=== PATIENT | female | born 1960 | race Caucasian/White ===

== ENCOUNTER 2023-11-20 05:40 | Emergency (ER) | payer OTHER, SELFPAY ==
[2023-11-20 05:53] VITALS: BP 151/90; PULSE 102; RESP 16; TEMP 36.7; O2SAT 98; BMI 27.5
[2023-11-20] MEDS: ONDANSETRON ODT 4 MG TAB 8 MG PO (06:38)
--- OUTSIDE RECORDS SUMMARY | 2023-11-20 06:51 | XMS_ITS | Clinical Summary ---
[facility] Address [address], [place] [address] Care Team Providers Care Classified Advertising Clerk Name Role Phone Jose Velásquez MD Primary Care Provider Source Comments You are receiving this document as you are listed as the primary care provider,follow-up provider, or the patient has been referred to you for consultation.This is in compliance with the Medicare andThe [facility] EHR Incentive Program,which states Providers who transition their patient to another setting of careor provider of care or refers their patient to another provider of care shouldprovide summary care record for each transition of care or referral. Blog Talk RadioGuadalupe County HospitalBusy [facility] Allergies No known active allergies Medications Medication Sig Dispensed Refills Start Date End Date Status fluticasone propionate (FLONASE) 50 MCG/ACT nasal solutionIndications :Chronic cough,Throat irritation SPRAY 2 SPRAYS INTO EACH NOSTRIL EVERY DAY 48 g 3 02/07/2020 Active estradiol (ESTRACE) 0.1 MG/GM vaginal creamIndications:Va ginal irritation Insert 1 g vaginally two times a week. 42.5 g 1 12/31/2021 Active Additional Information Patient not taking.Reported on 07/20/2023 cyclobenzaprine (FLEXERIL) 10 MG tabletIndications:F ibromyalgia Take 1 Tablet (10 mg) by mouth at bedtime as needed. for muscle spasms 20 Tablet 12/28/2021 Active SUMAtriptan (IMITREX) 50 MG tabletIndications:M igraine without status migrainosus, not intractable, unspecified migraine type TAKE 1 TABLET BY MOUTH DAILY NEEDED. MAY REPEAT AFTER 2 HOURS IF NEEDED. MAX 4 TAB/24 HOURS. MAX 9 DAYS/MONTH 9 Tablet 8 04/12/2022 Active buPROPion (WELLBUTRIN XL) 150 MG 24 hour release tabletIndications:M ild episode of recurrent major depressive disorder (HRC) Take 1 Tablet (150 mg) by mouth daily. 90 Tablet 3 04/10/2023 Active citalopram (CELEXA) 40 MG tabletIndications:M ild episode of recurrent major depressive disorder (HRC) Take 1 Tablet (40 mg) by mouth daily. 90 Tablet 3 04/10/2023 Active omeprazole (PRILOSEC) 20 MG capsuleIndications: Gastroesophageal reflux disease with esophagitis without hemorrhage Take 1 Capsule (20 mg) by mouth daily. Take 1 hour before a meal. 90 Capsule 3 04/10/2023 Active fluconazole (DIFLUCAN) 150 MG tabletIndications:V aginal itching Take 1 tablet now, repeat the dose every 72 hours x 3 doses. 3 Tablet 07/11/2023 Active Additional Information Patient not taking.Reported on 07/20/2023 benzonatate (TESSALON) 200 MG capsule Take 1 Capsule (200 mg) by mouth three times a day as needed for Cough. 30 Capsule 07/20/2023 Active HYDROcodone-acetami nophen (NORCO) 5-325 MG tablet Take 1-2 Tablets by mouth every 6 hours as needed for Pain. 10 Tablet 10/16/2023 Active ibuprofen (MOTRIN) 800 MG tablet Take 1 Tablet (800 mg) by mouth every 8 hours as needed for Pain. 30 Tablet 10/16/2023 Active Active Problems Problem Noted Date Diagnosed Date Hallux valgus, right 09/03/2023 Tailor's bunion of right foot 09/03/2023 Tailor's bunion of left foot 04/20/2022 Overview (04/20/2022): Added automatically from request for surgery [id number] Osteopenia 12/18/2020 Malignant neoplasm of upper lobe of right lung 0 09/25/2020 Overview (09/25/2020): Added automatically from request for surgery [id number] History of basal cell carcinoma 09/25/2020 Overview (09/25/2020): BCC, left medial canthus, s/p biopsy 11/14/2014. 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 Due to not eating with illness. Acute Acute endometritis 06/21/2014 Overview (10/16/2016): Acute endometritis - post surgical Encounters Date Type Department Care Team Description 11/11/2023 2:15 PM CDT Ancillary Procedure [place] [address] Radiology Podiatry [address] [place] [address]. [place] [address] Goyo Bobby DPM Orthopedic aftercare 11/11/2023 2:00 PM CDT Office Visit [place] [address] Podiatric MedSurg [address] [place] [address]. [facility] [place] [address] Goyo Bobby DPM Hallux valgus, right (Primary Dx); Tailor's bunion of right foot 11/10/2023 8:00 AM CDT Ancillary Procedure [place] [address] [place] [address]. [place] [address] Goyo Bobby DPM Unknown cause of injury, subsequent encounter 11/03/2023 2:30 PM CDT Office Visit [place] P3800 Podiatric MedSurg [address] [facility]. [place] [address] Nurse, P3800 Pod Med Surg Orthopedic aftercare (Primary Dx) 10/20/2023 2:45 PM CDT Ancillary Procedure [facility] [address] Radiology [address] [facility]. [place] [address] Goyo Bobby DPYari Hallux valgus, right 10/20/2023 2:30 PM CDT Office Visit [place] P3800 Podiatric MedSurg [address] [place] [address]. [place] [address] Nurse, P3800 Pod Med Surg Hallux valgus, right (Primary Dx); Orthopedic aftercare 10/16/2023 8:25 AM CDT - 10/16/2023 10:00 AM CDT Surgery [facility] [address] Ambul Surgery [address] [place] [address]. [place] [address] Gooy Bobby, DPYari BUNIONECTOMY WITH OSTEOTOMY AND TAILOR'S BUNIONECTOMY WITH OSTEOTOMY AND K-WIRE FIXATION 10/16/2023 8:14 AM CDT Anesthesia Event [facility] [address] Ambul Surgery [address] [facility] [place] [address] Priti Veloz MD 10/16/2023 7:14 AM CDT - 10/16/2023 10:30 AM CDT Hospital Encounter [facility] [address] Ambul Surgery [address] [facility]. [place] [address] Goyo Bobby DPM Hallux valgus, right; Tailor's bunion of right foot Discharge Disposition: Home 10/13/2023 E-Visit [facility] [address] Ambul Surgery [address] [facility] [place] [address] Rosa Maria, Generic Provider 10/07/2023 8:30 AM CDT Pre-Op Visit [facility] [address] [facility] [place] [address] Jose Velásquez MD Preoperative examination (Primary Dx); Tailor's bunion of right foot 09/30/2023 Telephone [facility] P38 Podiatric MedSurg [address] [place] [place] [address] Goyo Bobby, DPYari Prior Authorization For Procedure 09/11/2023 Notes/Orders [facility] Podiatric MedSurg [address] [place] [address] Goyo Bobby, HUY 09/03/2023 8:45 AM CDT Office Visit [facility] Podiatric MedSurg [address] [place] [address] Goyo Bobby, DPYari Foot pain, right (Primary Dx); Hallux valgus, right; Tailor's bunion of right foot 09/03/2023 8:40 AM CDT Ancillary Procedure [facility] Radiology [address] [place] [address] Goyo Bobby, DPYari Foot pain, right 09/03/2023 Telephone [facility] Podiatric Med[facility]urg [address] [place] [address] Goyo Bobby, DPYari Surgery Scheduling from Last 3 Months Immunizations Name Administration Dates Next Due Flu Vac (3+ yrs) 12/22/2012,04/06/2010 Flu Vac Preserv Free (3+yrs) 02/09/2008, 01/20/2007,12/23/2005,2002 Flublok (RIV4) 12/17/2021 HepA-HepB ([place], 18+ yrs) 02/10/2019,07/17/19 19,06/18/2018 Influenza ([place] Only) (Flul aval Quad 0.5, 3+ yrs) 02/13/2018 Influenza (Flucelvax), Prese rv Free QIV 11/30/2019,12/23/2017 Influenza IIV4 (Quadrivalent ) 0.5mL (92891) 01/25/2023,12/01/2020,12/31/2018,2016,02/07/2016 Influenza, Unspecified Formulation 11/24/2013 PCV20 ([id number]) 12/28/2021 Pfizer Bivalent 12+ 11/19/2021 Pfizer COVID-19 12+ 01/25/2023 Pfizer Monovalent 12+ 07/12/2021 Pfizer Monovalent 12+ Purple Top 12/13/2020,05/26,05/24/2020 Positive Measles Titer 06/18/2018 Positive Mumps Titer 06/18/2018 TDAP (ADACEL) 01/09/2011 Td 11/09/2002 Tdap 06/18/2018 Typhoid (Typhim Vi, IM) 06/18/2018 Zoster (Zostavax) 05/16/2015 Zoster RZV (Shingrix) 12/01/2020,11/30/2019 Family History Medical History Relation Name Comments Colon Polyps Father Lexx Dementia Father Lexx 2012 Heart Disease Father Lexx Depression Mother Sowmya Cancer, Breast Maternal Aunt great aunts osteroporosis Maternal Grandmother Urolithiasis Other Cancer Sister 1 Radha Cancer, Breast Sister 1 Radha Osteoporosis Sister 2 Cancer, Colon Negative Family History Cancer, Ovary Negative Family History Relation Name Status Comments Father Lexx Mother Sowmya Maternal Aunt Maternal Grandmother Other Sister 1 Radha Sister 2 Social History Tobacco Use Types Packs/Day Years Used Date Smoking Tobacco: Former Cigarettes Smokeless Tobacco: Never Tobacco Cessation:Counseling Given: Not Answered Comments:College light Alcohol Use Standard Drinks/Week Comments Not Currently 5 (1 standard drink = 0.6 oz pur e alcohol) 5 and under per week Humiliation, Afraid, Rape, and Kick questionnair e Answer Date Recorded Fear of Current or Ex-Partner Not on file Within the last year, have y ou been humiliated or emotionally abused in other ways by your partner or ex-partner? No 10/16/2023 Within the last year, have y ou been kicked, hit, slapped, or otherwise physically hurt by your partner or ex-partner? No 10/16/2023 Within the last year, have y ou been raped or forced to have any kind of sexual activity by your partner or ex-partner? No 10/16/2023 PHQ-2 Answer Date Recorded PHQ-2 Score 0 10/07/2023 Sex and Gender Information Value Date Recorded Sex Assigned at Not on file Gender Identity Not on file Sexual Orientation Not on file Last Filed Vital Signs Vital Sign Reading Time Taken Comments Blood Pressure 123/77 10/16/2023 10:01 AM CDT Pulse 88 10/16/2023 10:12 AM CDT Temperature 36.7 ??C (98.1 ??F) 10/16/2023 9:21 AM CD T Respiratory Rate 16 10/16/2023 9:45 AM CDT Oxygen Saturation 93% 10/16/2023 10:12 AM CDT Inhaled Oxygen Concentration - - Weight 72.1 kg (159 lb) 10/07/2023 8:37 AM CDT Height 157.5 cm (5' 2) 10/07/2023 8:37 AM CDT Body Mass Index 29.08 10/07/2023 8:37 AM CDT Plan of Treatment Upcoming Encounters Date Type Department Care Team (Late st Contact Info) Description 11/25/2023 1:45 PM CDT Appointment [facility] P3800 Podiatric MedSurg [address] [facility]. [place], [place] [id number] Goyo Bobby, DPYari [address] [place], [place] [id number] Health Maintenance Due Date Last Done Comments Adult Preventive Visit 12/28/2022 , 12/13/2020, 05/16/2018 Cervical Cancer Screening 05/17/20232018, 05/16/2015, 11/23/2012, Additional history exists Dexa 06/02/2023 06/01/2021, 06/16/2018 COVID-19 Vaccine ( season) 2023 01/25/2023, 11/19/2021, 07/12/2021, Additional history exists Influenza (#1) 2023 01/25/2023, 11/25, 12/01/2020, Additional history exists Mammogram 01/11/2024 01/10/2023, 05/2021, 08/22/2020, Additional history exists Colonoscopy 11/20/2025 11/21/2015, 10/25, 11/07/2009 Diabetes Screening- (based on age and BMI) 07/22/2026 07/23/2023, 01/03/2022, 01/02/2021 DTaP/Tdap/Td (3 - Tdap) 06/18/2028 06/19/19 19, 01/09/2011, 11/09/2002 Cholesterol 07/22/2028 07/23/2023, 12/25, 01/02/2021, Additional history exists RSV (1 - 1-dose 75+ series) 10/28/2034 HepA Completed 02/10/2019, 06/25, 06/18/2018 HepB Completed 02/10/2019, 06/25, 06/18/2018 Zoster/Shingles Completed 12/01/2020, 07/2019, 05/16/2015 HIV Screening (Preventive Services) Completed 01/02/2021 Hep C Screening (Preventive Services) Completed 01/02/2021 Pneumococcal Completed 12/28/2021 Hib Aged Out No longer eligi ble based on patient's age to complete this topic IPV (Polio) Aged Out No longer eligi ble based on patient's age to complete this topic MCV4 Aged Out No longer eligi ble based on patient's age to complete this topic Medical Devices Implanted Type Area Regional Trainer Device Identifier Shelf Expiration Date Model / Serial / Lot Sut [place] Point Corkscrew 5.5mm W2# - [id number] Implanted:Qt y: 1 on 05/08/2020 by Emerson Vasquez MD at [facility] DEVICE Right: SHOULDER [employer] 10/24/2024 [id number] / 0 / [id number] K-Wire .062 - [id number] Implanted:Qt y: 1 on 06/20/2022 by Goyo Bobby DPM at [facility] DEVICE Left: FOOT [employer] 05/07/2026 [id number] / / [id number] Scr Dl 4.0x28 Lng-Thrd - [id number] Implanted:Qt y: 1 on 06/20/2022 by Goyo Bobby DPM at [facility] DEVICE Left: FOOT [employer] - Trauma 207.728 / / Description:NO EXP DATE K-Wire .045 X 6in - [id number] Implanted:Qt y: 1 on 06/20/2022 by Goyo Bobby, HUY at [facility] DEVICE Left: FOOT [employer] 01/31/2026 [id number] / / [id number] K-Wire Gde .045mm Smth - B/6 - [id number] Implanted:Qt y: 1 on 10/16/2023 by Goyo Bobby DPM at [facility] DEVICE Right: FOOT [employer] 08/18/2027 1600-645 / / [id number] K-Wire Gde .062mm Smth - B/6 - [id number] Implanted:Qt y: 1 on 10/16/2023 by Goyo Bobby DPM at [facility] DEVICE Right: FOOT [employer] 07/04/2027 1600-662 / / [id number] Procedures Procedure Name Priority Date/Time Associated Diagnosis Comments XR FOOT RT 3+ VIEWS Routine 11/11/2023 1 :50 PM CDT Orthopedic aftercare XR FOOT RT 3+ VIEWS Routine 10/20/2023 3 :16 PM CDT Hallux valgus, right FL C ARM MINI Routine 10/16/2023 8:59 AM CDT Unknown cause of injury, subsequent encounter BUNIONECTOMY WITH OSTEOTOMY 10/16/2023 8:02 AM CDT Hallux valgus, right Tailor's bunion of right foot XR FOOT RT 3+ VIEWS Routine 09/03/2023 8 :46 AM CDT Foot pain, right LIPID PANEL & DIRECT LDL (IF NEEDED) Routine 07/23/2023 9:01 AM CDT Lipid screening MM MAMMOGRAM SCREENING BILAT W 3D DES W CAD Routine 01/10/2023 8:07 AM PET CARE ATTENDANT DXA BONE DENSITY SPINE/HIP INC VERT FX ASSESS Routine 06/01/2021 2:58 PM CDT Osteopenia, unspecified location HIV 1/2 AG/AB 4TH GEN Routine 01/02/2021 8:17 AM PET CARE ATTENDANT Screening for HIV (human immunodeficiency virus) HEPATITIS C ANTIBODY, WITH REFLEX Routine 01/02/2021 8:17 AM PET CARE ATTENDANT Need for hepatitis C screening test ANATOMICAL PATH LIQUID BASED Routine 05/16/2018 8:46 AM CDT ENDOSCOPY, COLON, SCREENING/DIAGNOSTIC Routine 11/21/2015 7:46 AM CDT Screen for colon cancer from Last 3 Months or Most Recently Relevant to Health Maintenance Results * XR Foot Rt 3+ Views (11/11/2023 1:50 PM CDT) Only the most recent of3 resultswithin the time period is included. Anatomical Region Laterality Modality Lower Extremity, Foot Computed R adiography 11/11/2023 1:47 PM CDT Impressions 11/11/2023 2:22 PM CDT COMPARISON: ??Right foot 3 views, 10/20/2023. FINDINGS: ??3 views of the right foot. Stable postoperative changes from a bunionectomy. Unchanged postoperative changes from osteotomies of the distal first and fifth metatarsals. Fixation pins remain intact. Incomplete healing of the osteotomies. Joint space narrowing and osteophyte formation at the first MTP joint. Remainder of the joint spaces of the right foot are preserved. Enthesophyte formation at the calcaneal insertion site of the plantar fascia. Normal calcaneal pitch. Narrative Procedure Note Uche Paige MD - 11/11/2023 IMPRESSION COMPARISON: Right foot 3 views, 10/20/2023. FINDINGS: 3 views of the right foot. Stable postoperative changes from abunionectomy. Unchanged postoperative changes from osteotomies of thedistal first and fifth metatarsals. Fixation pins remain intact.Incomplete healing of the osteotomies. Joint space narrowing andosteophyte formation at the first MTP joint. Remainder of the joint spacesof the right foot are preserved. Enthesophyte formation at the calcanealinsertion site of the plantar fascia. Normal calcaneal pitch. Goyo Bobby DPM RAD GD * FL C Arm Mini (10/16/2023 8:59 AM CDT) Anatomical Region Laterality Modality Radio Fluoroscop y Narrative 11/10/2023 8:01 AM CDT These images were obtained during a surgical procedure. Goyo Moralesbal DPM RAD FL * (ABNORMAL) Lipid Panel & Direct LDL (if Needed) (07/23/2023 9:01 AM CDT) Cholesterol 229(H) 0 - 199 mg/dL 07/23/2023 12:14 PM CDT [facility] Triglyceride 156(H) <=149 mg/dL 07/23/2023 12:14 PM CDT [facility] HDL Cholesterol 54 >=40 mg/dL 12:14 PM CDT [facility] LDL, Calculated 144(H) <130 mg/dL 12:14 PM CDT [facility] Non HDL Chol, Calculated 175(H) <=159 mg/dL 07/23/2023 12:14 PM CDT [facility] Cholesterol/HDL Ratio 4.2 <=5.0 07/23/2023 12:14 PM CDT [facility] Hours Fasting 14.0 8 - 12 Hours 07/23/2023 12:14 PM CDT [facility] Blood Venipuncture / Unknown 07/23/2023 9:01 AM CDT 07/23/2023 9:01 AM CDT Jose Velásquez MD LAB_1 [facility] [address] [place], [place] [address] [address] [place] [address] * MM Mammogram Screening Bilat W 3D Des W CAD (01/10/2023 8:07 AM PET CARE ATTENDANT) Anatomical Region Laterality Modality Breast Bilateral Mammography Impressions 01/10/2023 4:21 PM PET CARE ATTENDANT : ACR BI-RADS Category 1: Negative RECOMMENDATION: Follow Up Imaging in 12 months - Bilateral The results and recommendations of this examination will be communicated to the patient. Narrative 01/10/2023 4:21 PM PET CARE ATTENDANT MM MAMMOGRAM SCREENING BILAT W 3D DES W CAD performed on 01/10/23 Compared to: 12/28/2021 MM Mammogram Screening Bilat W 3D Des W CAD, 08/22/2020 MM Mammogram Screening Bilat W 3D Des W CAD, and 07/09/2019 MM Mammogram Screening Bilat W 3D Des W CAD ?? FINDINGS: Bilateral screening mammogram was performed with the assistance of Computer-Aided Detection and breast tomosynthesis. The breasts are heterogeneously dense, which may obscure small masses. There is no radiographic evidence of malignancy. ?? Santa Zendejas ARMATURE INSPECTOR, MANAGER FLOAT RAD JENNIFER * DXA Bone Density Spine/Hip Inc Vert FX Assess (06/01/2021 2:58 PM CDT) Anatomical Region Laterality Modality Spine, Hip Radiographic Maggie ging Narrative 06/08/2021 12:19 PM CDT CLINIC DXA REPORT Patient Name: ??Malaika Hitchcock Densitometer:56.com W (S/N [id number]) [id number] BONE 3 OSTEOPOROSIS RISK FACTORS FROM PATIENT QUESTIONNAIRE: ?? The patient is a 60 y.o.female: Menopause at age 54. ??Low calcium/ vitamin D intake. ?? BONE MINERAL DENSITY: Lumbar Spine Vertebrae Included: L1;L2;L3;L4 Bone Mineral Density (gm/cm2): 0.814 T-Score: -2.1 Z-Score: -0.6 Total Hip Bone Mineral Density (gm/cm2): 0.764 (L) T-Score: -1.5 Z-Score: -0.4 Femoral Neck Bone Mineral Density (gm/cm2): 0.581 T-Score: -2.4 Z-Score: -1.1 Osteoarthritis changes in the lumbar spine artificially increases the measured BMD. ??Comparison studies run by different technologists on different densitometers affects precision. ??Otherwise, scan quality is technically adequate for interpretation. FRAX 10 year probability major osteoporotic fracture: 13.6% 10 year probability hip fracture: 2.5% COMPARISON TO PRIOR STUDY: Date of prior study: 12/16/12 Lumbar spine change: -11.2% Total hip change: -7% VERTEBRAL FRACTURE ASSESSMENT: No vertebral fractures from T3 through L4 ASSESSMENT: 1. Moderate low bone mass, based on T-score(s) but with clinically significant decreases in spine/ hip BMD. 2. Patient is at moderate risk of fracture, based on age, fracture history, bone mineral density at all skeletal sites, and presence or absence of other risk factors. RECOMMENDATIONS: ?? 1. Maintain optimal calcium and vitamin D intake 2. Screen for secondary causes of bone loss, as indicated. 3. Repeat DXA in 2 years FRAX Explanation: The 10 year risks of hip and major osteoporotic fractures (clinical spine, forearm, hip or shoulder fracture) are calculated by the FRAX algorithm based on femoral neck bone density, age, gender, race/ethnicity, weight, height, previous fracture, parental hip fracture, smoking status, glucocorticoid intake, history of RA, secondary osteoporosis, and high alcohol consumption. FRAX Fracture Risk Categories in terms of major osteoporotic fractures: < 10% = low fracture risk ? 10% and <15% = mildly increased fracture risk ? 15% and <20% = moderately increased fracture risk ? 20% and <30% = high fracture risk ? 30% = very high fracture risk National Osteoporosis Foundation Treatment Guideline A clinician may consider FDA-approved medical therapies in postmenopausal women and men aged 50 years and older, if one or more of the following is present (clinical correlation required and therapy may not always be indicated): 1. The patient has a hip or vertebral fracture. 2. T-score ? -2.5 at the femoral neck, hip, or spine after appropriate evaluation to exclude secondary causes. 3. Low bone mass (T-score between -1.0 and -2.5 at the femoral neck, hip or spine) and a 10-year probability of a hip fracture ? 3% or a 10-year probability of a major osteoporosis-related fracture ? 20% based on the FRAX scores. Santa Avilez PA-C RAD DEXA * HIV 1/2 Ag/Ab 4th Generation (01/02/2021 8:17 AM PET CARE ATTENDANT) HIV 1/2 Antigen/Antib erika (4th generation) Negative (Non Reactive) Negative (Non Reactive) 01/02/2021 9:26 AM PET CARE ATTENDANT [facility] Comment:HIV-1 p24 Antigen an d HIV-1/HIV-2 Antibody not detected Blood Venipuncture / Unknown 01/02/2021 8:17 AM PET CARE ATTENDANT 01/02/2021 8:31 AM PET CARE ATTENDANT Santa Avilez PA-C LAB_1 Performing Organization Address [facility] de Phone Number [facility] [address] [place] [address] * Hepatitis C Antibody, with Reflex (01/02/2021 8:17 AM PET CARE ATTENDANT) Hepatitis C Antibody Negative (Non Reactive) Negative (Non Reactive) 01/02/2021 9:26 AM PET CARE ATTENDANT [facility] Comment:Antibodies to HCV no t detected. Does not exclude the possiblity of exposure to HCV. Blood Venipuncture / Unknown 01/02/2021 8:17 AM PET CARE ATTENDANT 01/02/2021 8:31 AM PET CARE ATTENDANT Santa Avilez PA-C LAB_1 Performing Organization Address [facility] de Phone Number [facility] [address] [place] [address] * Pap Smear (05/16/2018 8:46 AM CDT) 05/16/2018 8:46 AM CDT Narrative PN SOFT - 06/02/2018 2:47 PM CDT FINAL GYNECOLOGICAL CYTOLOGY REPORT Pathology #: [id number] ?Date Obtained: 05/16/2018 ? Date Received: 05/19/2018 INTERPRETATION/RESULTS: Negative for Intraepithelial Lesion or Malignancy. SPECIMEN ADEQUACY: Satisfactory for Evaluation. ??Endocervical cells/transformation zone component present. Verified on 05/28/2018 ??by LYNDA WILKINS(ASCP) (electronic signature) CLINICAL NOTES: ?Abnormal bleeding: No, LMP: none, Menstrual status: Post ?Menopausal, Current form of therapy: Hormone Therapy LIQUID BASED PAP SMEAR SPECIMEN TYPE: ?ROUTINE CERVICAL PAP TEST PLEASE NOTE: The pap smear is a screening test designed to aid in the detection of cervical cancer and its precursor lesions. It is not a diagnostic procedure and should not be used as the sole means of detecting cervical cancer. Both false-positive and false-negative reports may occur. Performed at [address] [address] Santa Avilez PA-C LAB_1 PN SOFT [address] [place] [id number] * Endoscopy, colon, diagnostic (11/21/2015 7:46 AM CDT) Anatomical Region Laterality Modality Other 11/21/2015 7:46 AM CDT Narrative 11/21/2015 7:46 AM CDT Patient Name: Malaika Hitchcock Procedure Date: 11/21/2015 7:46 AM Date of : 1960 Admit Type: Outpatient Age: 55 Gender: Female Note Status: Finalized Attending MD: Jamin Chaney MD Procedure: ? Colonoscopy Indications: ? Screening for colorectal malignant ? neoplasm Providers: ? Jamin Chaney MD, Loren De La Garza ? ARABELLA Song Referring MD: ?BUBBA Trveino Medicines: ? Fentanyl 100 micrograms IV, Midazolam ? 3 mg IV, Oxygen 2l/min per nasal ? cannula Complications: ? No immediate complications. Procedure: ? After I obtained informed consent, ? the scope was passed under direct ? vision. Throughout the procedure, the ? patient's blood pressure, pulse, and ? oxygen saturations were monitored ? continuously. The [id number] was ? introduced through the anus and ? advanced to the terminal ileum, with ? identification of the appendiceal ? orifice and IC valve. The colonoscopy ? was performed without difficulty. The ? patient tolerated the procedure well. ? The quality of the bowel preparation ? was good. Findings: ? The terminal ileum appeared normal. ? A few small-mouthed diverticula were found in the ? sigmoid colon. ? The exam was otherwise without abnormality. Impression: ?- The examined portion of the ileum ? was normal. ? - Diverticulosis in the sigmoid colon. ? - The examination was otherwise ? normal. ? - No specimens collected. Recommendation: ?- Repeat colonoscopy in 10 years for ? screening purposes. Procedure Code(s): ?? --- Professional --- ? G0121, Colorectal cancer screening; ? colonoscopy on individual not meeting ? criteria for high risk Diagnosis Code(s): ?? --- Professional --- ? Z12.11, Encounter for screening for ? malignant neoplasm of colon ? K57.30, Diverticulosis of large ? intestine without perforation or ? abscess without bleeding CPT copyright 2014 [employer]. All rights reserved. The codes documented in this report are preliminary and upon sign maintenance review may be revised to meet current compliance requirements. Jamin Chaney MD 11/21/2015 8:41:17 AM This document has been electronically signed. Number of Addenda: 0 Note Initiated On: 11/21/2015 7:46 AM ? Endoscopy Report Procedure Note Jamin Chaney MD - 11/21/2015 Patient Name: Malaika Hitchcock Procedure Date: 11/21/2015 7:46 AM Date of : 1960 Admit Type: Outpatient Age: 55 Gender: Female Note Status: Finalized Attending MD: Jamin Chaney MD Procedure: Colonoscopy Indications: Screening for colorectal malignant neoplasm Providers: Jamin Chaney MD, Loren Song RN Referring MD: BUBBA Trevino Medicines: Fentanyl 100 micrograms IV, Midazolam 3 mg IV, Oxygen 2l/min per nasal cannula Complications: No immediate complications. Procedure: After I obtained informed consent, the scope was passed under direct vision. Throughout the procedure, the patient's blood pressure, pulse, and oxygen saturations were monitored continuously. The [id number] was introduced through the anus and advanced to the terminal ileum, with identification of the appendiceal orifice and IC valve. The colonoscopy was performed without difficulty. The patient tolerated the procedure well. The quality of the bowel preparation was good. Findings: The terminal ileum appeared normal. A few small-mouthed diverticula were found in the sigmoid colon. The exam was otherwise without abnormality. Impression: - The examined portion of the ileum was normal. - Diverticulosis in the sigmoid colon. - The examination was otherwise normal. - No specimens collected. Recommendation: - Repeat colonoscopy in 10 years for screening purposes. Procedure Code(s): --- Professional --- G0121, Colorectal cancer screening; colonoscopy on individual not meeting criteria for high risk Diagnosis Code(s): --- Professional --- Z12.11, Encounter for screening for malignant neoplasm of colon K57.30, Diverticulosis of large intestine without perforation or abscess without bleeding CPT copyright 2014 [employer]. All rights reserved. The codes documented in this report are preliminary and upon sign maintenance review may be revised to meet current compliance requirements. Jamin Chaney MD 11/21/2015 8:41:17 AM This document has been electronically signed. 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 Expl anation HEALTHCARE DIRECTIVE 05/08/2018 05/09/19 19 * Full Code (Latest Code Status on File) Date Activated Date Inactivated Comments 10/16/2023 9:44 AM 10/16/2023 12:37 PM * Full Code Date Activated Date Inactivated Comments 09/26/2020 4:09 PM 09/29/2020 2:40 PM Full code in e ffect for 30 days * Full Code Date Activated Date Inactivated Comments 05/08/2020 8:53 AM 05/08/2020 12:17 PM * Full Code Date Activated Date Inactivated Comments 06/21/2014 1:49 PM 06/23/2014 11:43 AM Care Teams Classified Advertising Clerk Relationship Specialty Start Date End Date Jose Velásquez MD [address] [place] [address] [place] Marquez [address] PCP - General Internal Medicine 04/10/23
--- OUTSIDE RECORDS SUMMARY | 2023-11-20 06:51 | XMS_ITS | Encounter Summary ---
Author Organization [employer] Address [address] [place] [address] Care Team Providers Care Turpentiner Name Role Phone Jose Velásquez MD Primary Care Provider Reason for Referral * Procedure/Equipment (Routine) - Incomplete Specialty Diagnoses / Procedures Referred By Honey obrien Referred To Contact Diagnoses Hallux valgus, right Tailor's bunion of right foot Procedures Airselect Elite/Standard Tall boot ([id number]) Goyo Bobby DPM [address] [place] [address] Referral ID Status Reason Start Date Expiration Date V isits Requested Visits Authorized [id number] Incomplete 11/12/2023 02/10/2025 1 1 Encounter Details Date Type Department Care Team (Late st Contact Info) Description 11/11/2023 2:00 PM CDT Office Visit [facility] P3800 Podiatric MedSurg [address] [facility]. [place], [place] [phone] Goyo Bobby DPM [address] [place] [address] Hallux valgus, right (Primary Dx); Tailor's bunion of right foot Social History Tobacco Use Types Packs/Day Years Used Date Smoking Tobacco: Former Cigarettes Smokeless Tobacco: Never Comments:College light Alcohol Use Standard Drinks/Week Comments [...] on file Sexual Orientation Not on file documented as of this encounter Progress Notes * Goyo Bobby, HUY - 11/11/2023 2:00 PM CDT PODIATRIC MED AND SURGERY POST OP NOTE DATE OF SURGERY: 10/16/2023 NAME: Malaika Hitchcock CSN: [id number] DATE OF VISIT: 11/11/2023 SUBJECTIVE: Patient returns to clinic 4 weeks status post right Chevron and tailor's bunionectomy. Pain is tolerated well and the patient has modified activities within previous instructions. Denies any current concerns or recent injury. MEDICATIONS: Reviewed today in [employer] ALLERGIES: Reviewed today in [facility] OBJECTIVE: Malaika Hitchcock is a 63 y.o. female in no acute distress. The previous incision sites arewell healed. No signs of gapping or dehisence. Surgical site edema is present. The incision site ispink in appearance and without signs of necrosis. No erythema or drainage is present. ROM of the right 1st MTPJ is within normal limits, but with tenderness at the end ROM. Maintaining rectus alingment of the 1st MTPJ. K-wires on the right: Wires are without evidence of anterior or retrograding. There is no active orexpressed drainage, or erythema at the K-wire sites. The wires appear to be in the similar and appropriate alingment following surgery. X-rays reveal maintained position of the osteotomies and K-wires with evidence of some bone incorporation at the previous osteotomy site. ASSESSMENT: 4 1/2 weeks s/p Chevron and tailor's bunionectomy right foot PLAN: K-wires were removed without incident today. Post-operative instructions were reviewed. Patient may begin to get the foot wet beginning tomorrow. Patient will begin to gradually weight bear in a CAM walker or well supportive athletic shoe as tolerated. Avoid weightbearing barefoot beyond bathing. The patient will followup in 2 weeks for repeat x-rays, sooner if any problems, pain or concerns persist. The patient was discharged ambulatory and in stable condition. documented in this encounter Plan of Treatment Upcoming Encounters Date Type Department Care Team (Late st [facility]) Description 11/25/2023 1:45 PM CDT Appointment [facility] P3800 Podiatric MedSurg [address] [facility]. [place], [place] [phone] Goyo Bobby DPM [address] [place] [address] documented as of this encounter Visit Diagnoses Diagnosis Hallux valgus, right- Primary Tailor's bunion of right foot documented in this encounter Care Teams Turpentiner Relationship Specialty Start Date End Date Jose Velásquez MD [address] [place], [place] [address] PCP - General Internal Medicine 04/10/23 documented as of this encounter
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
--- OUTSIDE RECORDS SUMMARY | 2023-11-20 06:51 | XMS_ITS | Encounter Summary ---
Author Organization [employer] Address [address], [place] [address] Care Team Providers Care Proced Tech Name Role Phone Jose Velásquez MD Primary Care Provider Reason for Visit * Procedure/Equipment (Routine) - Incomplete Specialty Diagnoses / Procedures Referred By Honey obrien Referred To Contact Diagnoses Orthopedic aftercare Procedures XR Foot Rt 3+ Views Goyo Bobby DPM [address] [place] [address] Referral ID Status Reason Start Date Expiration Date V isits Requested Visits Authorized [id number] Incomplete 11/11/2023 02/09/2025 1 1 Encounter Details Date Type Department Care Team (Latest Contact Info) Description 11/11/2023 2:15 PM CDT Ancillary Procedure [facility] P38 Radiology Podiatry [address] [facility]. [place], [place] [phone] Goyo Bobby DPM [address] [place] [address] Orthopedic aftercare Social History Tobacco Use Types Packs/Day Years [...] on file documented as of this encounter Plan of Treatment Upcoming Encounters Date Type Department Care Team (Late st Contact Info) Description 11/25/2023 1:45 PM CDT Appointment [facility] P3800 Podiatric MedSurg [address] [facility]. [place], [place] [address] Goyo Bobby, DPYari [address] [place], [place] [address] documented as of this encounter Procedures Procedure Name Priority Date/Time Associated Diagnosis Comments XR FOOT RT 3+ VIEWS Routine 11/11/2023 1 :50 PM CDT Orthopedic aftercare documented in this encounter Results * XR Foot Rt 3+ Views (11/11/2023 1:50 PM CDT) Anatomical Region Laterality Modality Lower Extremity, Foot [...] calcaneal pitch. Goyo Bobby DPM RAD GD documented in this encounter Visit Diagnoses Diagnosis Orthopedic aftercare Unspecified orthopedic aftercare documented in this encounter Care Teams Proced Tech Relationship Specialty Start Date End Date Jose Velásquez MD [address] [place] [address] PCP - General Internal Medicine 04/10/23 documented as of this encounter
--- NOTE | 2023-11-20 06:52 | ED.GENADULT ---
HPI - General Adult General Date Seen: 11/20/23 <Jamin Santizo MD - Last Filed: 11/22/23 20:24> Chief complaint: Post Op Complication <Jamin Santizo MD - Last Filed: 11/22/23 20:24> Stated complaint: RT foot pain after surgery c/o clot <Jamin Santizo MD - Last Filed: 11/22/23 20:24> Time Seen by Provider: 11/20/23 06:12 <Jamin Santizo MD - Last Filed: 11/22/23 20:24> Source: patient <Jamin Santizo MD - Last Filed: 11/22/23 20:24> Mode of arrival: ambulatory <Jamin Santizo MD - Last Filed: 11/22/23 20:24> Limitations: no limitations <Jamin Santizo MD - Last Filed: 11/22/23 20:24> History of Present Illness HPI narrative: Patient is a 63-year-old female who had repair of a right bunion and tailor's bunion five weeks ago. One week ago shoes allowed to begin weight-bearing with a boot on. She had been nonweightbearing for the previous four weeks. She feels a tightness and pulling in the right calf and is concerned about a blood clot. No history of clot. No chest pains or shortness of breath. Yesterday she began having some nausea but no vomiting. She has the chills and states that she had fever but did not check her temperature. 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 She complains of nausea but no abdominal pain. No dysuria, urgency, frequency. <Jamin Santizo MD - Last Filed: 11/22/23 20:24> Related Data Home medications: Home Medications ?Medication ?Instructions ?Recorded ?Confirmed bupropion HCl PO 11/20/23 citalopram .ROUTE 11/20/23 fexofenadine .ROUTE 11/20/23 omeprazole .ROUTE 11/20/23 Previous Rx's ?Medication ?Instructions ?Recorded cephalexin 500 mg capsule 500 mg PO TID 5 days #15 caps 11/20/23 <Jamin Santizo MD - Last Filed: 11/22/23 20:24> Allergies/adverse reactions: Allergies Allergy/AdvReac Type Severity Reaction Status Date / Time No Known Drug Allergies Allergy Verified 11/20/23 05:56 <Jamin Santizo MD - Last Filed: 11/22/23 20:24> Review of Systems Narrative: Review of systems is outlined above otherwise noted to be negative. <Jamin Santizo MD - Last Filed: 11/22/23 20:24> PFSH [facility] Social History: Social History Smoking Status: Never smoker How often do you have a drink containing alcohol: monthly or less AUDIT-C Alcohol total score: 1 Non-prescribed substance use: denies use <Jamin Santizo MD - Last Filed: 11/22/23 20:24> Exam Narrative: Exam Narrative: Vitals noted. HEENT: Conjunctiva clear. Tympanic membranes are pearly white bilaterally. Posterior pharynx is clear without erythema or exudate. Neck is supple without adenopathy. Lungs: Clear to auscultation in all peres. No wheezes, rales, rhonchi. Heart: Regular rate and rhythm without murmur. Abdomen: Soft and nontender. No guarding, rigidity, rebound. Bowel sounds are normal. No palpable masses. Extremities: No cyanosis or edema. Good distal pulses. There is no calf warmth or redness. There is some minor tenderness to palpation. No muscle spasms. Her incisions are well healed. No significant tenderness to palpation of any the bony areas in the lower extremities. Skin: No abnormalities noted of the exposed skin. Neurologic: Awake, alert, fully oriented. Neurologic exam is nonfocal. <Jamin Santizo MD - Last Filed: 11/22/23 20:24> Const: Vital Signs, click to edit/add: Vital Signs - 24 hr 11/20/23 05:53 11/20/23 07:25 Temperature 98.1 F Pulse Rate [Pulse Oximeter] 102 H 93 Respiratory Rate 16 16 Blood Pressure [Ri ght Upper Arm] 151/90 H 120/74 Pulse Oximetry 98 98 Oxygen Delivery Me thod Room Air Room Air <Jamin Santizo MD - Last Filed: 11/22/23 20:24> Vital Signs, click to edit/add: Vital Signs - 24 hr 11/20/23 05:53 11/20/23 07:25 Temperature 98.1 F Pulse Rate [Pulse Oximeter] 102 H 93 Respiratory Rate 16 16 Blood Pressure [Ri ght Upper Arm] 151/90 H 120/74 Pulse Oximetry 98 98 Oxygen Delivery Me thod Room Air Room Air <David Mccloud MD - Last Filed: 11/20/23 07:47> Course Course ED Course: Patient is seen and examined. I ordered a CBC, BMP, UA, D-dimer. For nausea she is given Zofran 8 mg orally. <Jamin Santizo MD - Last Filed: 11/22/23 20:24> Reevaluation(s) Reevaluation #1: CBC and BMP are normal. She did get some relief of her nausea from the Zofran. <Jamin Santizo MD - Last Filed: 11/22/23 20:24> Vital Signs Vital signs: Initial Vital Signs Temperature 98.1 F 11/20/23 05:53 Temperature Source Temporal Artery Scan 11/20/23 05:53 Pulse Rate 102 H 11/20/23 05:53 Respiratory Rate 16 11/20/23 05:53 Blood Pressure 151/90 H 11/20/23 05:53 Blood Pressure Mean 110 H 11/20/23 05:53 Blood Pressure Position Sitting 11/20/23 05:53 Pulse Oximetry 98 11/20/23 05:53 Oxygen Delivery Method Room Air 11/20/23 05:53 Vital Signs Temperature 98.1 F 11/20/23 05:53 Pulse Rate 102 H 11/20/23 05:53 Respiratory Rate 16 11/20/23 05:53 Blood Pressure 151/90 H 11/20/23 05:53 Pulse Oximetry 98 11/20/23 05:53 Oxygen Delivery Method Room Air 11/20/23 05:53 Temperature 98.1 F 11/20/23 05:53 Pulse Rate 93 11/20/23 07:25 Respiratory Rate 16 11/20/23 07:25 Blood Pressure 120/74 11/20/23 07:25 Pulse Oximetry 98 11/20/23 07:25 Oxygen Delivery Method Room Air 11/20/23 07:25 <Jamin Santizo MD - Last Filed: 11/22/23 20:24> Initial Vital Signs Temperature 98.1 F 11/20/23 05:53 Temperature Source Temporal Artery Scan 11/20/23 05:53 Pulse Rate 102 H 11/20/23 05:53 Respiratory Rate 16 11/20/23 05:53 Blood Pressure 151/90 H 11/20/23 05:53 Blood Pressure Mean 110 H 11/20/23 05:53 Blood Pressure Position Sitting 11/20/23 05:53 Pulse Oximetry 98 11/20/23 05:53 Oxygen Delivery Method Room Air 11/20/23 05:53 Vital Signs Temperature 98.1 F 11/20/23 05:53 Pulse Rate 102 H 11/20/23 05:53 Respiratory Rate 16 11/20/23 05:53 Blood Pressure 151/90 H 11/20/23 05:53 Pulse Oximetry 98 11/20/23 05:53 Oxygen Delivery Method Room Air 11/20/23 05:53 Temperature 98.1 F 11/20/23 05:53 Pulse Rate 93 11/20/23 07:25 Respiratory Rate 16 11/20/23 07:25 Blood Pressure 120/74 11/20/23 07:25 Pulse Oximetry 98 11/20/23 07:25 Oxygen Delivery Method Room Air 11/20/23 07:25 <David Mccloud MD - Last Filed: 11/20/23 07:47> Medications Administered Medications: Discontinued Medications Generic Name Dose Route Start Last Admin Trade Name Freq PRN Reason Stop Dose Admin Ondansetron HCl 8 mg 11/20/23 06:30 11/20/23 06:38 Ondansetron Odt 4 Mg Tab PO 11/20/23 06:31 8 mg ONCE ONE Administration <Jamin Santizo MD - Last Filed: 11/22/23 20:24> Discontinued Medications Generic Name Dose Route Start Last Admin Trade Name Freq PRN Reason Stop Dose Admin Ondansetron HCl 8 mg 11/20/23 06:30 11/20/23 06:38 Ondansetron Odt 4 Mg Tab PO 11/20/23 06:31 8 mg ONCE ONE Administration <David Mccloud MD - Last Filed: 11/20/23 07:47> Medical Decision Making MDM Narrative Medical decision making narrative: Care for this patient was transferred to ms at the end of Dr. Santizo's shift. The patient's D-dimer returns in normal range so I gave reassurance is to her and it is negative predictive value for blood clot. The patient does report some chills yesterday and states that she does have some increased urinary frequency. Urinalysis does return with 5-10 white blood cells per high-powered field. I did provide a prescription for Keflex. She is okay to be discharged home and will follow-up accordingly. <David Mccloud MD - Last Filed: 11/20/23 07:47> Lab Data Labs: Lab Results 11/20/23 11/20/23 Range/Units 06:41 06:55 WBC 3.01 L (4.50-11.00) K/uL RBC 4.57 (4.00-5.20) m/uL Hgb 14.5 (12.0-16.0) gm/dL Hct 43.3 (33.0-51.0) % MCV 95 (80-100) fL MCH 32 (26-34) pg MCHC 34 (32-36) gm/dL RDW Coeff of René 11.9 (11.5-15.5) % Plt Count 185 (140-440) K/uL Neut % (Auto) 68.7 (42.0-72.0) % Lymph % (Auto) 18.3 L (20-44) % Stanley % (Auto) 12.0 H (0.0-11.0) % Eos % (Auto) 0.3 (0.0-7.0) % Baso % (Auto) 0.7 (0.0-3.0) % Neut # (Auto) 2.10 (1.7-7.0) K/uL Lymph # (Auto) 0.60 L (0.90-2.90) K/uL Stanley # (Auto) 0.40 (0.00-0.90) K/UL Eos # (Auto) 0.00 (0.00-0.50) K/uL Baso # (Auto) 0.00 (0.00-0.30) K/uL Abs Immat Gran (auto) 0.00 (0.00-0.30) K/uL Imm/Tot Granulo (auto) 0.0 % D-Dimer Quant (PE/DVT) 0.50 (0.00-0.50) ug/ml Sodium 136 (135-149) mmol/L Potassium 4.0 (3.6-5.1) mmol/L Chloride 106 (96-114) mmol/L Carbon Dioxide 23 (20-32) mmol/L Anion Gap 7 (7-15) mEq/L BUN 13 (7-30) mg/dL Creatinine 0.8 (0.5-1.5) mg/dL Estimated Creat Clear 47.01 Estimated GFR 82 ml/min Glucose 115 (60-115) mg/dL Calcium 9.5 (8.4-10.6) mg/dL Urine Color Yellow (Yellow) Urine Appearance Clear (Clear) Urine pH 6.5 (5.0-8.5) Ur Specific [place] 1.025 (1.000-1.030) Urine Protein Negative (Negative) Urine Glucose (UA) Negative (Negative) Urine Ketones Negative (Negative) Urine Blood Trace-lysed A (Negative) Urine Nitrite Negative (Negative) Urine Bilirubin Negative (Negative) Urine Urobilinogen 0.2 (0.2-1.0) Ur Leukocyte Esterase 1+ A (Negative) Urine RBC 2-5 A (0-2) Urine WBC 5-10 A (0-5) Ur Squamous Epith Cells Few (None-Few) Urine Bacteria Moderate A (None) <Jamin Santizo MD - Last Filed: 11/22/23 20:24> Lab Results 11/20/23 11/20/23 Range/Units 06:41 06:55 WBC 3.01 L (4.50-11.00) K/uL RBC 4.57 (4.00-5.20) m/uL Hgb 14.5 (12.0-16.0) gm/dL Hct 43.3 (33.0-51.0) % MCV 95 (80-100) fL MCH 32 (26-34) pg MCHC 34 (32-36) gm/dL RDW Coeff of René 11.9 (11.5-15.5) % Plt Count 185 (140-440) K/uL Neut % (Auto) 68.7 (42.0-72.0) % Lymph % (Auto) 18.3 L (20-44) % Stanley % (Auto) 12.0 H (0.0-11.0) % Eos % (Auto) 0.3 (0.0-7.0) % Baso % (Auto) 0.7 (0.0-3.0) % Neut # (Auto) 2.10 (1.7-7.0) K/uL Lymph # (Auto) 0.60 L (0.90-2.90) K/uL Stanley # (Auto) 0.40 (0.00-0.90) K/UL Eos # (Auto) 0.00 (0.00-0.50) K/uL Baso # (Auto) 0.00 (0.00-0.30) K/uL Abs Immat Gran (auto) 0.00 (0.00-0.30) K/uL Imm/Tot Granulo (auto) 0.0 % D-Dimer Quant (PE/DVT) 0.50 (0.00-0.50) ug/ml Sodium 136 (135-149) mmol/L Potassium 4.0 (3.6-5.1) mmol/L Chloride 106 (96-114) mmol/L Carbon Dioxide 23 (20-32) mmol/L Anion Gap 7 (7-15) mEq/L BUN 13 (7-30) mg/dL Creatinine 0.8 (0.5-1.5) mg/dL Estimated Creat Clear 47.01 Estimated GFR 82 ml/min Glucose 115 (60-115) mg/dL Calcium 9.5 (8.4-10.6) mg/dL Urine Color Yellow (Yellow) Urine Appearance Clear (Clear) Urine pH 6.5 (5.0-8.5) Ur Specific [place] 1.025 (1.000-1.030) Urine Protein Negative (Negative) Urine Glucose (UA) Negative (Negative) Urine Ketones Negative (Negative) Urine Blood Trace-lysed A (Negative) Urine Nitrite Negative (Negative) Urine Bilirubin Negative (Negative) Urine Urobilinogen 0.2 (0.2-1.0) Ur Leukocyte Esterase 1+ A (Negative) Urine RBC 2-5 A (0-2) Urine WBC 5-10 A (0-5) Ur Squamous Epith Cells Few (None-Few) Urine Bacteria Moderate A (None) <David Mccloud MD - Last Filed: 11/20/23 07:47> Discharge Plan Discharge Clinical Impression: Urinary tract infection <Jamin Santizo MD - Last Filed: 11/22/23 20:24> Patient Disposition: Home, Self-Care <Jamin Santizo MD - Last Filed: 11/22/23 20:24> Condition: Stable <Jamin Santizo MD - Last Filed: 11/22/23 20:24> Additional Instructions: take medication as prescribed. Follow up with MD return if worsening. <Jamin Santizo MD - Last Filed: 11/22/23 20:24> Prescriptions: New cephalexin 500 mg capsule 500 mg PO TID 5 Days Qty: 15 0RF No Action bupropion HCl [Wellbutrin] PO citalopram [Celexa] .ROUTE fexofenadine [Adilia Allergy] .ROUTE omeprazole .ROUTE <Jamin Santizo MD - Last Filed: 11/22/23 20:24> Follow Up/Referrals: Provider,Not a Local [Primary Care Provider] - <Jamin Santizo MD - Last Filed: 11/22/23 20:24> Stand Alone Forms: [employer] Info Instructions <Jamin Santizo MD - Last Filed: 11/22/23 20:24>
--- OUTSIDE RECORDS SUMMARY | 2023-11-20 06:52 | XMS_ITS | Encounter Summary ---
Author Organization [employer] Address [address] [address] Care Team Providers Care Director Database Name Role Phone Jose Velásquez MD Primary Care Provider Reason for Visit * Procedure/Equipment (Routine) - Incomplete Specialty Diagnoses / Procedures Referred By Honey obrien Referred To Contact Diagnoses Hallux valgus, right Procedures XR Foot Rt 3+ Views Goyo Bobby DPM [address] [place] [address] Referral ID Status Reason Start Date Expiration Date V isits Requested Visits Authorized [id number] Incomplete 10/20/2023 01/18/2025 1 1 Encounter Details Date Type Department Care Team (Latest Contact Info) Description 10/20/2023 2:45 PM CDT Ancillary Procedure [place] [address] [facility]. [place], [place] [address] Goyo Bobby DPM [address] [place], [place] [id number] Hallux valgus, right Social History Tobacco Use Types Packs/Day Years [...] Info) Description 11/25/2023 1:45 PM CDT Appointment [facility] P3800 Podiatric MedSurg [address] [facility]. [place], [place] [address] Goyo Bobby, HUY [address] [place], [place] [address] documented as of this encounter Procedures Procedure Name Priority Date/Time Associated Diagnosis Comments XR FOOT RT 3+ VIEWS Routine 10/20/2023 3 :16 PM CDT Hallux valgus, right documented in this encounter Results * XR Foot Rt 3+ Views (10/20/2023 3:16 PM CDT) Anatomical Region Laterality Modality Lower Extremity, Foot Digital Ra diography 10/20/2023 3:16 PM CDT Impressions 10/20/2023 3:34 PM CDT COMPARISON: ??09/03/2023 FINDINGS: ??Postoperative changes of a first and fifth metatarsal bunionectomy and osteotomy in satisfactory position and without evidence of complication. Narrative Procedure Note Mo Lepe MD - 10/20/2023 IMPRESSION COMPARISON: 09/03/2023 FINDINGS: Postoperative changes of a first and fifth metatarsalbunionectomy and osteotomy in satisfactory position and without evidenceof complication. Goyo Bobby DPM RAD GD documented in this encounter Visit Diagnoses Diagnosis Hallux valgus, right documented in this encounter Care Teams Director Database Relationship Specialty Start Date End Date Jose Velásquez MD [address] [place] [address] [place] [address] PCP - General Internal Medicine 04/10/23 documented as of this encounter
--- OUTSIDE RECORDS SUMMARY | 2023-11-20 06:52 | XMS_ITS | Encounter Summary ---
Author Organization [employer] Address [address] [address] Care Team Providers Care Zoo Caretaker Name Role Phone Jose Velásquez MD Primary Care Provider Encounter Details Date Type Department Care Team (Late st Contact Info) Description 09/11/2023 Notes/Orders [facility] [address] [place], [place] [phone] Goyo Bobby DPM [address] [place], [place] [phone] Social History Tobacco Use Types Packs/Day Years Used Date Smoking Tobacco: Never Smokeless Tobacco: Never Alcohol Use Standard Drinks/Week Comments Yes 5 (1 standard drink = 0.6 oz pur e alcohol) 5 and under per week PHQ-2 Answer Date Recorded PHQ-2 Score 0 05/31/2022 Sex and Gender Information Value Date Recorded Sex Assigned at Not on file Gender Identity Not on file Sexual Orientation Not on file documented as of this encounter Plan of Treatment Upcoming Encounters Date Type Department Care Team (Late st Contact Info) Description 11/25/2023 1:45 PM CDT Appointment [facility] P3800 Podiatric MedSurg [address] [facility] [place], [place] [phone] Goyo Bobby, DPM [address] [facility] [place] [address] documented as of this encounter Visit Diagnoses Not on filedocumented in this encounter Care Teams Zoo Caretaker Relationship Specialty Start Date End Date Jose Velásquez MD [address] [place] Mar[place] [address] PCP - General Internal Medicine 04/10/23 documented as of this encounter
--- OUTSIDE RECORDS SUMMARY | 2023-11-20 06:52 | XMS_ITS | Encounter Summary ---
Author Organization [facility] Address [address] [address] Care Team Providers Care Attorney Law Clerk Name Role Phone Jose Velásqeuz MD Primary Care Provider Reason for Visit * Auth/Cert (Routine) Specialty Diagnoses / Procedures Referred By Honey obrien Referred To Contact Diagnoses Hallux valgus, right Tailor's bunion of right foot Procedures BUNIONECTOMY WITH OSTEOTOMY AND TAILOR'S BUNIONECTOMY WITH OSTEOTOMY AND K-WIRE FIXATION Referral ID Status Reason Start Date Expiration Date Visits Re quested Visits Authorized [id number] 1 1 Encounter Details Date Type Department Care Team (Late st Contact Info) Description 10/16/2023 8:14 AM CDT Anesthesia Event [facility] [address] [place] [address] Ambul Surgery [address] [facility] [place] [address] Priti Hanson MD [address] [place] [address] Anesthesia Record Procedure Summary Procedure Name Responsible Anesthesiologist Anesthesia Start Time Anesthesia Stop Time BUNIONECTOMY WITH OSTEOTOMY AND TAILOR'S BUNIONECTOMY WITH OSTEOTOMY AND K-WIRE FIXATION (Right: Foot) Priti Hanson MD 10/16/23 0814 10/16/23 0921 Events Date Time Event Comment 10/16/2023 0814 An Start 0814 An Start Data 0814 Nasal Canula/O2 Mask 08 MD/DO Present 08 An Local Anesthetic By Surge on 820 An Local Anesthetic By Surge on 826 An Tourn Inflated RLE 250 mm Hg 08 An Local Anesthetic By Surge on 902 MD/DO Present 910 An Tourn Deflated 44 min tot al TQ time 09 an stop data 920 Care Handoff Note I discusse d with the receiving nurse and we: 1) Identified the patient, pond family member(s) or patient surrogate 2) Identified the responsible practitioner 3) Reviewed the pertinent medical history 4) Discussed the surgical/procedure course 5) Reviewed intra-op anesthesia management and issues during anesthesia 6) Set expectations for the post-procedure period 7) Allowed opportunity for questions and acknowledgement of understanding of report Electronically signed by Ankur Garcia APRN, QUANTITATIVE ANALYST DEVELOPER 09 An Stop Care transferre jermain Meds Name Total midazolam injection 2 mg/2 mL (VERSED) 1 mg fentaNYL injection (SUBLIMAZE) 50 mcg lidocaine 1% PF injection (XYLOCAINE) 30 mg propofol 10 mg/mL IV (DIPRIVAN) 330.41 m g ondansetron injection (ZOFRAN) 4 mg dexamethasone 4 mg/mL injection (DECADRO N) 4 mg ketorolac 15 mg/mL injection (TORADOL) 1 5 mg ceFAZolin (ANCEF) 2 g in dextrose 100 mL premade IVPB 2 g lactated ringers infusion 700 mL * Agents Name Identified Agent Name 02 Delivery Device O2 N2O Air Sevoflurane (inspired) Nitrous Oxide () * Blood No blood administrations on file. Lines, Drains, and Airways Type Details Placement Removal Peripheral IV Placement Date: 10/16/23; Placement Time: 0740; Pre-existing: No; Inserted by?: RN; Size (Gauge): 20 G; Orientation: Left; Site Prep: ChloraPrep; Local Anesthetic: None; Insertion attempts: 1; Blood draw with insertion?: no; Patient Tolerance: Tolerated well; Removal Date: 10/16/23; Removal Time: 1000; Removal Reason: Patient discharged; Catheter Tip: Intact 10/16/23 0740 by Aneta Quintana RN 10/16/23 1000 by Adiel Ovalle RN Incision/Surgical Site 10/16/23; 0820; # 2; Foot; Right; 10/16/23; 1035 10/16/23 0820 by Ping Deal RN 10/16/23 1035 by Adiel Ovalle RN documented in this encounter Social History Tobacco Use Types Packs/Day Years [...] on file documented as of this encounter Miscellaneous Notes * Anesthesia Postprocedure Evaluation - Priti Hanson MD - 10/16/2023 10:54 AM CDT [facility] Anesthesia Post-op Note Patient: Malaika Hitchcock Post-Op Diagnosis: Pre-Op Diagnosis Codes: * Hallux valgus, right [M20.11] * Tailor's bunion of right foot [M21.621] Procedure Performed: Procedure(s): Right - BUNIONECTOMY WITH OSTEOTOMY AND TAILOR'S BUNIONECTOMY WITH OSTEOTOMY AND K-WIRE FIXATION - Wound Class: 1 CLEAN Anesthesia Type: MAC Post-op vital signs: Vitals Value Taken Time BP 123/77 10/16/23 1000 Temp 36.7 ??C (98.1 ??F) 10/16/23 0921 Pulse 87 10/16/23 1000 Resp 16 10/16/23 0945 SpO2 93 % 10/16/23 1000 Pain Score: Preferred Pain Scale: word (Verbal Rating Pain Scale) (0-10) Pain Rating: Rest: 2 (0-10) Pain Rating: Activity: 2 Post-op assessment: Patient location: Phase 2 Airway Status: Patent Cardiovascular function: Satisfactory Hydration status: Satisfactory PONV: None Level of Consciousness: Awake Fully Participates Postop Assessment: Patient tolerated procedure well. Electronically signed by: Priti Hanson MD 10/16/2023 10:54 AM * Anesthesia Preprocedure Evaluation - Priti Hanson MD - 10/16/2023 7:54 AM CDT [facility] Anesthesia Pre-op Evaluation Procedure: BUNIONECTOMY WITH OSTEOTOMY AND TAILOR'S BUNIONECTOMY WITH OSTEOTOMY AND K-WIRE FIXATION, Right HPI: 62 y.o. old female. Pre-Op Diagnosis Codes: * Hallux valgus, right [M20.11] * Tailor's bunion of right foot [M21.621] Last Fluid Intake Time: 644 Last Fluid Intake Date: 10/16/23 Last Food Intake Date: 10/15/23 Last Food Intake Time: 1899 No Known Allergies Past Medical History: Diagnosis Date Acute endometritis - post surgical 06/21/2014 Allergic rhinitis Back pain (ACG) Basal cell carcinoma Nose Depression (ACG) Diverticulitis x 2 episodes GERD (gastroesophageal reflux disease) H/O colonoscopy 10/2015 normal . 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 Patient Active Problem List Diagnosis Migraine without aura Benign neoplasm of cranial nerve (HRC) Heart burn Depression, major, recurrent (HRC) Chest pain Malignant neoplasm of upper lobe of right lung (HRC) History of basal cell carcinoma Osteopenia Tailor's bunion of left foot Other deformities of toe(s) (acquired), left foot Anxiety and depression (HRC) Hallux valgus, right Tailor's bunion of right foot Past Surgical History: Procedure Laterality Date ENDOMETRIAL ABLATION 05/2014 HX APPENDECTOMY WISDOM TEETH EXTRACTION Outpatient Medications as of 10/16/2023 Medication Sig benzonatate (TESSALON) 200 MG capsule Take 1 Capsule (200 mg) by mouth three times a day as needed for Cough. buPROPion (WELLBUTRIN XL) 150 MG 24 hour release tablet Take 1 Tablet (150 mg) by mouth daily. citalopram (CELEXA) 40 MG tablet Take 1 Tablet (40 mg) by mouth daily. cyclobenzaprine (FLEXERIL) 10 MG tablet Take 1 Tablet (10 mg) by mouth at bedtime as needed. for muscle spasms estradiol (ESTRACE) 0.1 MG/GM vaginal cream Insert 1 g vaginally two times a week. (Patient not taking: Reported on 07/20/2023) fluconazole (DIFLUCAN) 150 MG tablet Take 1 tablet now, repeat the dose every 72 hours x 3 doses. (Patient not taking: Reported on 07/20/2023) fluticasone propionate (FLONASE) 50 MCG/ACT nasal solution SPRAY 2 SPRAYS INTO EACH NOSTRIL EVERY DAY omeprazole (PRILOSEC) 20 MG capsule Take 1 Capsule (20 mg) by mouth daily. Take 1 hour before a meal. SUMAtriptan (IMITREX) 50 MG tablet TAKE 1 TABLET BY MOUTH DAILY NEEDED. MAY REPEAT AFTER 2 HOURSIF NEEDED. MAX 4 TAB/24 HOURS. MAX 9 DAYS/MONTH Facility-Administered Medications as of 10/16/2023 Medication Dose Route Frequency ceFAZolin (ANCEF) 2 g in dextrose 100 mL premade IVPB 2 g Intravenous Once diphenhydrAMINE (BENADRYL) injection 25 mg 25 mg Intravenous ONCE PRN ePHEDrine injection 25 mg 25 mg Intramuscular ONCE PRN fentaNYL (SUBLIMAZE) injection 25-50 mcg 25-50 mcg Intravenous Q5MIN PRN fentaNYL (SUBLIMAZE) injection 50 mcg 50 mcg Intravenous Q5MIN PRN hydrALAZINE (APRESOLINE) injection 5 mg 5 mg Intravenous Q10MIN PRN HYDROmorphone (DILAUDID) injection 0.25 mg 0.25 mg Intravenous Q10MIN PRN hydrOXYzine HCl (VISTARIL) injection 25 mg 25 mg Intramuscular ONCE PRN labetalol (NORMODYNE) injection 5 mg 5 mg Intravenous Q10MIN PRN lactated ringers infusion 25 mL/hr Intravenous Continuous lidocaine PF (XYLOCAINE) 1 % injection 0.1-0.3 mL 0.1-0.3 mL Intradermal Once And lidocaine PF (XYLOCAINE) 1 % injection 0.1-0.3 mL 0.1-0.3 mL Intradermal PRN midazolam (VERSED) injection 0.5-1 mg 0.5-1 mg Intravenous Q5MIN PRN midazolam (VERSED) injection 1-2 mg 1-2 mg Intravenous Q5MIN PRN naloxone (NARCAN) injection 0.08 mg 0.08 mg Intravenous PRN naloxone (NARCAN) injection 0.4 mg 0.4 mg Intravenous ONCE PRN ondansetron (ZOFRAN) injection 4 mg 4 mg Intravenous Q4H PRN prochlorperazine (COMPAZINE) injection 5 mg 5 mg Intravenous Q15MIN PRN Labs: Lab Results Component Value Date/Time SODIUM 141 07/23/2023 09:01 AM K 4.3 07/23/2023 09:01 AM CHLORIDE 104 07/23/2023 09:01 AM BUN 11 07/23/2023 09:01 AM CREATININE 0.81 07/23/2023 09:01 AM GLUCOSE 108 (H) 07/23/2023 09:01 AM Lab Results Component Value Date/Time WBC 7.0 07/23/2023 09:01 AM HGB 15.8 (H) 07/23/2023 09:01 AM HCT 46.8 (H) 07/23/2023 09:01 AM PLTS 320 07/23/2023 09:01 AM INR (no units) Date Value 09/26/2020 0.9 Blood Bank: ABO (no units) Date Value 09/26/2020 A Antibody Screen Interpretation (no units) Date Value 09/26/2020 Negative EKG: No results found for this or any previous visit. Physical Exam: BP (!) 132/95 Pulse 92 Temp 36.2 ??C (97.2 ??F) (Temporal Artery) Resp 16 LMP 05/15/2014 (Exact Date) SpO2 97% Assessment/Plan: Review of Systems Patient does not have GERD. Patient is not a current smoker. Patient is a former smoker. The patient denies alcohol use. Patient denies any recent URI. History of PONV: Yes. History of motion sickness: No. Patient denies any personal or family history of anesthesia complications. NPO Status: Acceptable. Exam Mental Status: Alert and oriented. Mallampati score: II (Two). Mouth opening: Normal Thyromental Distance: > 3 finger breadths and Normal Neck Extension: Full Neck Circumference > 40 cm?: No Current airway assessment:Normal Cardiac Exam: Regular rate and rhythm. Respiratory Exam: Breath sounds clear to auscultation Assessment ASA Status: 2 . Plan Anesthesia type: MAC Induction: Intravenous and Propofol Maintenance: TIVA Postoperative pain management: Plan for postoperative opioid use PONV Prophylaxis (planned): Ondansetron and Decadron Anesthetic plan, risks, benefits and alternatives discussed with the patient who agrees to the anesthesia treatment plan. 62 y.o. female with migraines, GERD, lung ca s/p resection a couple of years ago without any recentissues here for above procedure. Discussed risks/benefits of sedation with GA backup. Patient had block for foot procedure- discussed possible post op block if needed. Patient agreeable. All questions answered. The patient and/or their artist representative were notified about the potential risks of damage to the lips, teeth, dental devices, mouth and airway. H&P Reviewed and Patient examined, no change observed IV access Antibiotics per surgery Electronically signed by: Priti Hanson MD 10/16/2023 7:54 AM documented in this encounter Plan of Treatment Upcoming Encounters Date Type Department Care Team (Late st Contact Info) Description 11/25/2023 1:[address] [id number] Podiatric MedSurg [address] [facility]. [place], [place] [id number] Goyo Bobby DPM [address] [place] [address] documented as of this encounter Visit Diagnoses Not on filedocumented in this encounter Administered Medications Inactive Administered Medications - up to 3 most recent administrations Medication Order MAR Action Action Date Dose Rate Site ceFAZolin (ANCEF) 2 g in dextrose 100 mL premade IVPB 2 g, Intravenous, Administer over 30 Minutes, ONCE, On Dulce 10/16/23 at 0745, For 1 dose, Infuse within 60 minutes prior to incision; Re-dose 1 gram IV every 4 hours after initial dose until incision closed., Pre-op Given 10/16/2023 8:14 AM CDT 2 g dexAMETHasone (DECADRON) injection Intravenous, Starting on Dulce 10/16/23 at 0820, Until Dulce 10/16/23 at 0921 Given 10/16/2023 8:20 AM CDT 4 mg fentaNYL (SUBLIMAZE) injection Intravenous, Starting on Dulce 10/16/23 at 0814, Until Dulce 10/16/23 at 0921 Given 10/16/2023 8:14 AM CDT 50 mcg ketorolac (TORADOL) injection Intravenous, Starting on Dulce 10/16/23 at 0905, Until Dulce 10/16/23 at 0921 Given 10/16/2023 9:05 AM CDT 15 mg lactated ringers infusion 25 mL/hr, Intravenous, CONTINUOUS, Starting on Dulce 10/16/23 at 0730, Administer on all preop surgery patients, ages 12 and older, unless specified differently in the Protocol for Preop Initiation of IV fluids Order Set., Pre-op Restarted 10/16/2023 8:15 AM CDT Continued by Anesthesia 10/16/2023 8:14 AM CDT 25 mL/hr Started 10/16/2023 7:40 AM CDT 25 mL/hr 25 mL/hr lidocaine PF (XYLOCAINE) 1 % injection Intravenous, Starting on Dulce 10/16/23 at 0815 Given 10/16/2023 8:15 AM CDT 30 mg midazolam (VERSED) injection Intravenous, Starting on Dulce 10/16/23 at 0814, Until Dulce 10/16/23 at 0921 Given 10/16/2023 8:14 AM CDT 1 mg ondansetron (ZOFRAN) injection Intravenous, Starting on Dulce 10/16/23 at 0820, Until Dulce 10/16/23 at 0921 Given 10/16/2023 8:20 AM CDT 4 mg propofol (DIPRIVAN) 10 mg/mL injection Intravenous, Starting on Dulce 10/16/23 at 0815, Until Dulce 10/16/23 at 0921 Given 10/16/2023 9:08 AM CDT 25 mg Rate/Dose Change 10/16/2023 8:45 AM CDT 50 mcg/kg/min 15.0 3 mL/hr Given 10/16/2023 8:29 AM CDT 50 mg documented in this encounter Care Teams Attorney Law Clerk Relationship Specialty Start Date End Date Jose Velásquez MD [address] [place] [address] PCP - General Internal Medicine 04/10/23 documented as of this encounter
--- OUTSIDE RECORDS SUMMARY | 2023-11-20 06:52 | XMS_ITS | Encounter Summary ---
Author Organization [facility] Address [address], [place] [address] Care Team Providers Care Plexiglas Former Name Role Phone Jose Velásquez MD Primary Care Provider Reason for Visit * Auth/Cert (Routine) Specialty Diagnoses / Procedures Referred By Honey obrien Referred To Contact Diagnoses Hallux valgus, right Tailor's bunion of right foot Procedures BUNIONECTOMY WITH OSTEOTOMY AND TAILOR'S BUNIONECTOMY WITH OSTEOTOMY AND K-WIRE FIXATION Referral ID Status Reason Start Date Expiration Date Visits Re quested Visits Authorized [id number] 1 1 Encounter Details Date Type Department Care Team (Late st Contact Info) Description 10/16/2023 8:25 AM CDT - 10/16/2023 10:[address] [facility] [address] [facility] [address] Ambul Surgery [address] [facility] [place] [address] Goyo Bobby, DPYari [address] [place] [address] BUNIONECTOMY WITH OSTEOTOMY AND TAILOR'S BUNIONECTOMY WITH OSTEOTOMY AND K-WIRE FIXATION Social History Tobacco Use Types Packs/Day Years [...] on file documented as of this encounter Last Filed Vital Signs Vital Sign Reading Time Taken Comments Blood Pressure 123/77 10/16/2023 10:00 AM CDT Pulse 87 10/16/2023 10:00 AM CDT Temperature 36.7 ??C (98.1 ??F) 10/16/2023 9:21 AM CD T Respiratory Rate 16 10/16/2023 9:45 AM CDT Oxygen Saturation 93% 10/16/2023 10:00 AM CDT Inhaled Oxygen Concentration - - Weight - - Height - - Body Mass Index - - documented in this encounter Medications at Time of Discharge Medication Sig Dispensed Refills Start Date End Date benzonatate (TESSALON) 200 MG capsule Take 1 Capsule (200 mg) by mouth three times a day as needed for Cough. 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 90 Tablet 3 04/10/2023 cyclobenzaprine (FLEXERIL) 10 MG tabletIndications:Fibro myalgia Take 1 Tablet (10 mg) by mouth at bedtime as needed. for muscle spasms 20 Tablet 12/28/2021 estradiol (ESTRACE) 0.1 MG/GM vaginal creamIndications:Vagina l irritation Insert 1 g vaginally two times a week. 42.5 g 1 12/31/2021 fluconazole (DIFLUCAN) 150 MG tabletIndications:Vagin al itching Take 1 tablet now, repeat the dose every 72 hours x 3 doses. 3 Tablet 07/11/2023 fluticasone propionate (FLONASE) 50 MCG/ACT nasal solutionIndications:Chr onic cough,Throat irritation SPRAY 2 SPRAYS INTO EACH NOSTRIL EVERY DAY 48 g 3 02/07/2020 HYDROcodone-acetaminoph en (NORCO) 5-325 MG tablet Take 1-2 Tablets by mouth every 6 hours as needed for Pain. 10 Tablet 10/16/2023 ibuprofen (MOTRIN) 800 MG tablet Take 1 Tablet (800 mg) by mouth every 8 hours as needed for Pain. 30 Tablet 10/16/2023 omeprazole (PRILOSEC) 20 MG capsuleIndications:Sugey roesophageal reflux disease with esophagitis without hemorrhage Take 1 Capsule (20 mg) by mouth daily. Take 1 hour before a meal. 90 Capsule 3 04/10/2023 SUMAtriptan (IMITREX) 50 MG tabletIndications:Migra ine without status migrainosus, not intractable, unspecified migraine type TAKE 1 TABLET BY MOUTH DAILY NEEDED. MAY REPEAT AFTER 2 HOURS IF NEEDED. MAX 4 TAB/24 HOURS. MAX 9 DAYS/MONTH 9 Tablet 8 04/12/2022 documented as of this encounter H&P Notes * Goyo Bobby DPM - 10/16/2023 7:51 AM CDT Surgery Update for Preop History and Physical For 10/16/2023 scheduled procedure Update to H&P includes: Patient and/or family denies any health changes since the H&P This patient has been evaluated by me today and has been found to be a suitable candidate for surgery. 10/16/2023 Source Note - Jose Velásquez MD - 10/07/2023 8:30 AM CDT PREOPERATIVE ASSESSMENT Date of Service: 10/07/2023 Date of : 1960 Age: 62 y.o. Sex: female Preoperative Evaluation completed by: Jose Velásquez MD Primary cardiac care unit nurse: Jose Velásquez MD [phone] CHIEF COMPLAINT Pre-Operative Evaluation ANTICIPATED PROCEDURE Chief Complaint Patient presents with PRE-OP EXAM Right foot surgery: BUNIONECTOMY WITH OSTEOTOMY AND TAILOR'S BUNIONECTOMY WITH OSTEOTOMY AND K-WIREFIXATION, 10/16/[address] Bobby at the [facility] TELLER HISTORY OF PRESENT ILLNESS Right Foot symptomatic bunion Risk Factors/Review of Systems: (Please see flowsheets for details) Cardiovascular risks negative except for: Renal risks negative except for: Neuro risks negative except for: GI risks negative except for: Pulmonary risks negative except for: Endocrine/Nutrition risks negative except for: Hematologic Disease risks negative except for: Musculoskeletal/Skin risks negative except for: Mental Health risks negative except for: Code Status: , Other risk factors negative except for: Complete review of systems is otherwise negative. Patient Active Problem List Diagnosis Migraine without aura Benign neoplasm of cranial nerve (HRC) Heart burn Depression, major, recurrent (HRC) Chest pain Malignant neoplasm of upper lobe of right lung (HRC) History of basal cell carcinoma Osteopenia Tailor's bunion of left foot Other deformities of toe(s) (acquired), left foot Anxiety and depression (HRC) Hallux valgus, right Tailor's bunion of right foot Past Medical History: Diagnosis Date Acute endometritis - post surgical 06/21/2014 Allergic rhinitis Back pain (ACG) Basal cell carcinoma Nose Depression (ACG) Diverticulitis x 2 episodes GERD (gastroesophageal reflux disease) H/O colonoscopy 10/2015 normal . Repeat 10 years Hx of bone density study 10/2012 mild osteopenia Migraines PONV (postoperative nausea and vomiting) Schwannoma followed by [place] Past Surgical History: Procedure Laterality Date ENDOMETRIAL ABLATION 05/2014 HX APPENDECTOMY WISDOM TEETH EXTRACTION Family History Problem Relation Age of Onset Colon Polyps Father Dementia Father 2013 Heart Disease Father Cancer, Breast Sister 62 Cancer Sister Osteoporosis Sister Cancer, Breast Maternal Aunt great aunts Other (osteroporosis) Maternal Grandmother Urolithiasis Other Depression Mother Cancer, Colon Negative Family History Cancer, Ovary Negative Family History Social History Tobacco Use Smoking status: Former Types: Cigarettes Smokeless tobacco: Never Tobacco comments: College light Substance Use Topics Alcohol use: Not Currently Alcohol/week: 5.0 standard drinks of alcohol Types: 5 Glasses of wine per week Comment: 5 and under per week Current Outpatient Medications Medication Sig Dispense Refill benzonatate (TESSALON) 200 MG capsule Take 1 Capsule (200 mg) by mouth three times a day as needed for Cough. 30 Capsule 0 buPROPion (WELLBUTRIN XL) 150 MG 24 hour release tablet Take 1 Tablet (150 mg) by mouth daily. 90 Tablet 3 citalopram (CELEXA) 40 MG tablet Take 1 Tablet (40 mg) by mouth daily. 90 Tablet 3 cyclobenzaprine (FLEXERIL) 10 MG tablet Take 1 Tablet (10 mg) by mouth at bedtime as needed. for muscle spasms 20 Tablet 0 estradiol (ESTRACE) 0.1 MG/GM vaginal cream Insert 1 g vaginally two times a week. (Patient not taking: Reported on 07/20/2023) 42.5 g 1 fluconazole (DIFLUCAN) 150 MG tablet Take 1 tablet now, repeat the dose every 72 hours x 3 doses. (Patient not taking: Reported on 07/20/2023) 3 Tablet 0 fluticasone propionate (FLONASE) 50 MCG/ACT nasal solution SPRAY 2 SPRAYS INTO EACH NOSTRIL EVERY DAY 48 g 3 omeprazole (PRILOSEC) 20 MG capsule Take 1 Capsule (20 mg) by mouth daily. Take 1 hour before a meal. 90 Capsule 3 SUMAtriptan (IMITREX) 50 MG tablet TAKE 1 TABLET BY MOUTH DAILY NEEDED. MAY REPEAT AFTER 2 HOURSIF NEEDED. MAX 4 TAB/24 HOURS. MAX 9 DAYS/MONTH 9 Tablet 8 No current facility-administered medications for this visit. No Known Allergies PHYSICAL EXAMINATION Pulse: 90 (10/07/23836) BP: (!) 129/97 (10/07/23836) Height: 157.5 cm (5' 2) (10/07/23836) Weight: 72.1 kg (159 lb) (10/07/23836) BMI: 29.08 (10/07/23836) General Appearance: Normal HEENT: Normal Neck: Normal Lungs: Normal Heart: Normal Abdomen: Normal Extremities: Normal Skin: Normal Neurologic: Normal TEST RESULTS AND DATE EKG done: Yes: date and results: 07/20/23 = NSR Labs done: No ASSESSMENT 1. Preoperative Assessment: This patient has been examined by me today and has been found to be a suitable candidate for surgery: Yes 2. Right Foot symptomatic bunion RECOMMENDATIONS AND PLAN Day of surgery testing: none Medication recommendations including insulin / diabetes: stop asa, nsaids, supplements x 1 wk p/t surgery Additional screening recommended: no Consult (Cardiology/other): no Additional test results attached: none Recommend RT assessment post op for Oxygenation and ventilation monitoring: no Other: no - Do not eat anything after midnight the evening before your surgery. - It is OK to drink water or Gatorade up to 4 hours before your surgery. - You may take medicines before surgery with a small sip of water ABOVE RECOMMENDATIONS WERE REVIEWED WITH PATIENT: yes 10/07/2023 documented in this encounter Procedure Notes * Goyo Bobby DPM - 10/16/2023 9:26 AM CDT NAME: Malaika Hitchcock MR#: [id number] CSN:[id number] AUTHENTICATING CLINICIAN: Gooy Bobby DPM LOC: 1 OPERATIVE REPORT DATE OF OPERATION: 10/16/2023 : 1960 SURGEON: Goyo Bobby DPM PREOPERATIVE DIAGNOSES: 1. Hallux abductovalgus, right foot. 2. Tailors bunion, right foot. POSTOPERATIVE DIAGNOSES: 1. Hallux abductovalgus, right foot. 2. Tailors bunion, right foot. PROCEDURE: 1. Chevron bunionectomy, right foot. 2. Tailors bunionectomy, right foot. ANESTHESIA: MAC. PREOPERATIVE MEDICATIONS: 2 g of Ancef. INDICATIONS FOR THE PROCEDURE: The patient, Malaika Hitchcock is a 62 y.o. female, with a longstanding history of a painful right bunion and tailors bunion. The proposed surgical procedure, postoperative course, and potential complications including but not limited to postoperative pain, swelling, infection, failure of the procedure, and need for further procedures in the future. Aftercare was discussed and the patient consented to undergoing the procedure. OPERATIVE NOTE: The patient was brought in the OR room and placed on OR table in the supine position. Following theadministration of IV sedation, a local injection of 2% lidocaine plain was infiltrated to the site just proximal to the bunion. The foot was then prepped and draped in the usual sterile and aseptic manner. A right ankle tourniquet was inflated to 250 mmHg following exsanguination of the foot with an Esmarch bandage. A longitudinal linear incision was then made on the dorsomedial aspect of the first metatarsophalangeal joint, deepened via sharp and blunt dissection with care to identify and retract neurovascular structures down to the level of the joint capsule. The joint capsule was then incised in a similar orientation to the skin incision. This was carried down to the level of the bone, and the periosteum and capsular structures were then freely elevated from the dorsomedial aspect of this joint. There was noted to be a medial prominence of the first metatarsal head and therefore, using a sagittal saw, this was resected. Through the same skin incision, the deep transverse intermetatarsal ligament was identified in the first intermetatarsal space and transected. The adductor hallucis tendon was freed of its distal attachment and the fibular sesamoid freed of proximal, distal and lateral attachments. The attention was then directed to the medial aspect of the first metatarsal head where a chevron osteotomy was performed followed by transposition of the capital fragment laterally to a corrected position and fixation with a 0.062 inch K-wire. The remaining medial eminence of the distal first metatarsal shaft was then resected flush with the new position of the first metatarsal head. The wound was thoroughly irrigated, and deep structures were reapproximated using 2- 0 Vicryl suture. The skin was reapproximated using a 4-0 PDS. Steri-strips were placed transversely across the incision. A longitudinal linear incision was then made on the dorsolateral aspect of the fifth metatarsophalangeal joint, deepened via sharp and blunt dissection with care to identify and retract neurovascularstructures down to the level of the joint capsule. The joint capsule was then incised in a similar orientation to the skin incision. This was carried down to the level of the bone, and the periosteumand capsular structures were then freely elevated from the dorsolateral aspect of this joint. Therewas noted to be a lateral prominence of the fifth metatarsal head and therefore, using a sagittal saw, this was resected. The attention was then directed to the lateral aspect of the fifth metatarsal head where a chevron osteotomy was performed followed by transposition of the capital fragment medially to a corrected position and fixation with a 0.045 inch K-wire. The remaining lateral eminence of the distal fifth metatarsal shaft was then resected flush with the new position of the fifth metatarsal head. The wound was thoroughly irrigated, and deep structures were reapproximated using 4-0 Vicryl suture. The skin was reapproximated using a 4-0 PDS. Steri-stripswere placed transversely across the incision. Surgical site injection consisted of 0.5% Marcaine plain and dexamethasone sodium phosphate. Dry sterile dressing was applied. Ankle tourniquet was deflated. Vascular perfusion was noted to return toall digits of the right foot. The patient left the OR room for recovery with all vital signs apparently stable. POST OP COURSE: Strict NWB right foot for 4 weeks with followup x-rays at that time. * Goyo Bobby DPM - 10/16/2023 9:[address] [facility] Brief Operative Progress Note Surgery Date: 10/16/2023 Surgeons and Role: * Goyo Bobby DPM - Primary * No visitors entered * Pre-op Diagnosis: * Hallux valgus, right [M20.11] * Tailor's bunion of right foot [M21.621] Post-op Diagnosis: * Hallux valgus, right [M20.11] * Tailor's bunion of right foot [M21.621] Procedures with associated lateralities: Procedure(s) (LRB): BUNIONECTOMY WITH OSTEOTOMY AND TAILOR'S BUNIONECTOMY WITH OSTEOTOMY AND K-WIRE FIXATION (Right) EBL: 3 mL Specimens: * No specimens in log * Complications / Findings: bunion and tailors bunion documented in this encounter Plan of Treatment Upcoming Encounters Date Type Department Care Team (Late st Contact Info) Description 11/25/2023 1:[address] [facility] P[facility] Podiatric MedSurg [address] [facility] [place], [place] [id number] Goyo Bobby DPM [address], [place] [id number] documented as of this encounter Procedures Procedure Name Priority Date/Time Associated Diagnosis Comments BUNIONECTOMY WITH OSTEOTOMY 10/16/2023 8:02 AM CDT Hallux valgus, right Tailor's bunion of right foot documented in this encounter Visit Diagnoses Diagnosis Hallux valgus, right Tailor's bunion of right foot Hallux valgus, right Tailor's bunion of right foot Hallux valgus, right Tailor's bunion of right foot * Plan of Care - Tsering Schwarz RN - 10/13/2023 11:36 AM CDT PPA call completed by calling [phone] and spoke to patient. Advised of arrival time 0725. 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 All questions answered, no other needs at this time. Call back number [phone] for any questions/concerns. This information was also provided to patient via [employer]. documented in this encounter Admitting Diagnoses Diagnosis Hallux valgus, right Tailor's bunion of right foot documented in this encounter Administered Medications Inactive Administered Medications - up to 3 most recent administrations Medication Order MAR Action Action Date Dose Rate Site BUPivacaine (MARCAINE) 0.5 % injection ONCE PRN, Starting on Dulce 10/16/23 at 0908, Intra-op Given 10/16/2023 9:08 AM CDT 10 mL Wound Site dexAMETHasone (DECADRON) injection ONCE PRN, Starting on Dulce 10/16/23 at 0841, Until Dulce 10/16/23 at 1237, Intra-op Given 10/16/2023 8:41 AM CDT 4 mg Wound Site diphenhydrAMINE (BENADRYL) injection 25 mg 25 mg, Intravenous, ONCE PRN, Other, for Nausea or Vomiting, Starting on Dulce 10/16/23 at 0713, Until Dulce 10/16/23 at 1237, For 1 dose, If multiple medications are ordered for nausea or vomiting - administer in the following priority based on medications ordered, effectiveness and availability: ondansetron (ZOFRAN) > prochlorperazine (COMPAZINE) > diphenhydrAMINE (BENADRYL) > hydrOXYzine HCl (VISTARIL)> ePHEDrine > scopolamine (TRANSDERM-SCOP)., PACU/Recovery ePHEDrine injection 25 mg 25 mg, Intramuscular, ONCE PRN, Other, for nausea or vomiting, Starting on Dulce 10/16/23 at 0713, For 1 dose, If multiple medications are ordered for nausea or vomiting - administer in the following priority based on medications ordered, effectiveness and availability: ondansetron (ZOFRAN) > prochlorperazine (COMPAZINE) > diphenhydrAMINE (BENADRYL) > hydrOXYzine HCl (VISTARIL)> ePHEDrine > scopolamine (TRANSDERM-SCOP)., PACU/Recovery fentaNYL (SUBLIMAZE) injection 25-50 mcg 25-50 mcg, Intravenous, [id number], Pain, Procedure, Starting on Dulce 10/16/23 at 0718, Until Dulce 10/16/23 at 1237, For 2 doses, As directed by anesthesiologist, Pre-op fentaNYL (SUBLIMAZE) injection 50 mcg 50 mcg, Intravenous, [id number], Pain, The immediate postop period when faster on-set, short acting agent is desired., Starting on Dulce 10/16/23 at 0713, Until Dulce 10/16/23 at 1237, Administer every 5 minutes as needed, to a maximum cumulative dose of 250 mcg. Call Anesthesiologist if additional or greater doses needed For patients with a regional, spinal, or local anesthetic, may give for anticipated pain as the anesthetic wears off. Use fentanyl initially for a short acting agent for treatment of acute post-operative pain.?May be used in conjunction with alonger acting agent if ordered for optimal pain control.?Respiratory rate must be greater than 10 to administer medications., PACU/Recovery hydrALAZINE (APRESOLINE) injection 5 mg 5 mg, Intravenous, Q10MIN PRN, Other, High Blood Pressure, MAX 4 doses, hold for HR <50, Starting on Dulce 10/16/23 at 0713, Until Dulce 10/16/23 at 1237, For 4 doses, Call Anesthesiologist before administration. Give as directed by Anesthesiologist., PACU/Recovery HYDROmorphone (DILAUDID) injection 0.25 mg 0.25 mg, Intravenous, Q10MIN PRN, Pain, The immediate postop period when longer acting agent is desired., Starting on Dulce 10/16/23 at 0713, Until Dulce 10/16/23 at 1237, Maximum cumulative dose is 2 mg in PACU, call Anesthesiologist if additional or greater dosing is needed. For patients with a regional, spinal, or local anesthetic, may give for anticipated pain as the anesthetic wears off. , PACU/Recovery hydrOXYzine HCl (VISTARIL) injection 25 mg 25 mg, Intramuscular, ONCE PRN, Nausea/Vomiting, Starting on Dulce 10/16/23 at 0713, Until Dulce 10/16/23 at 1237, For 1 dose, If multiple medications are ordered for nausea or vomiting - administer in the following priority based on medications ordered, effectiveness and availability: ondansetron (ZOFRAN) > prochlorperazine (COMPAZINE) > diphenhydrAMINE (BENADRYL) > hydrOXYzine HCl (VISTARIL)> ePHEDrine > scopolamine (TRANSDERM-SCOP)., PACU/Recovery labetalol (NORMODYNE) injection 5 mg 5 mg, Intravenous, Q10MIN PRN, Other, High Blood Pressure, MAX 5 doses, hold for HR <50, Starting on Dulce 10/16/23 at 0713, Until Dulce 10/16/23 at 1237, For 5 doses, Call Anesthesiologist before administration. Give as directed by Anesthesiologist., PACU/Recovery lactated ringers infusion 25 mL/hr, Intravenous, CONTINUOUS, Starting on Dulce 10/16/23 at 0730, Administer on all preop surgery patients, ages 12 and older, unless specified differently in the Protocol for Preop Initiation of IV fluids Order Set., Pre-op Restarted 10/16/2023 8:15 AM CDT Continued by Anesthesia 10/16/2023 8:14 AM CDT 25 mL/hr Started 10/16/2023 7:40 AM CDT 25 mL/hr 25 mL/hr lidocaine (XYLOCAINE) 2 % injection ONCE PRN, Starting on Dulce 10/16/23 at 0841, Intra-op Given 10/16/2023 8:41 AM CDT [address] lidocaine PF (XYLOCAINE) 1 % injection 0.1-0.3 mL 0.1-0.3 mL, Intradermal, PRN, Other, for additional IV starts, Starting on Dulce 10/16/23 at 0718, Pre-op midazolam (VERSED) injection 0.5-1 mg 0.5-1 mg, Intravenous, [id number], Anxiety, Starting on Dulce 10/16/23 at 0713, Until Dulce 10/16/23 at 1237, Maximum cumulative dose is 2 mg. TO BE GIVEN IN PACU ONLY., PACU/Recovery midazolam (VERSED) injection 1-2 mg 1-2 mg, Intravenous, [id number], Sedation, Anxiety, Procedure, Starting on Dulce 10/16/23 at 0718, Until Dulce 10/16/23 at 1237, As directed by anesthesiologist MAX Dose 2mg, Pre-op naloxone (NARCAN) injection 0.08 mg 0.08 mg, Intravenous, PRN, Other, For respiratory rate less than 8/minute or patient difficult to arouse, Starting on Dulce 10/16/23 at 0713, Until Dulce 10/16/23 at 1237, May repeat every 3 minutes or until patient is responsive to physical stimulation and is able to take deep breaths. Maximum cumulative dose is 0.4 mg (1 mL). Continue to observe; if no response after administering total dose of 0.4 mg notify anesthesiologist STAT., PACU/Recovery naloxone (NARCAN) injection 0.4 mg 0.4 mg, Intravenous, ONCE PRN, Opioid Reversal, Starting on Dulce 10/16/23 at 0713, Until Dulce 10/16/23 at 1237, For 1 dose, For imminent respiratory arrest. Notify MD if naloxone is given., PACU/Recovery ondansetron (ZOFRAN) injection 4 mg 4 mg, Intravenous, Q4H PRN, Nausea, Vomiting, Starting on Dulce 10/16/23 at 0713, Until Dulce 10/16/23 at 1237, If multiple medications are ordered for nausea or vomiting - administer in the following priority based on medications ordered, effectiveness and availability: ondansetron (ZOFRAN) > prochlorperazine (COMPAZINE) > diphenhydrAMINE (BENADRYL) > hydrOXYzine HCl (VISTARIL)> ePHEDrine > scopolamine (TRANSDERM-SCOP)., PACU/Recovery prochlorperazine (COMPAZINE) injection 5 mg 5 mg, Intravenous, Q15MIN PRN, Nausea, Vomiting, Starting on Dulce 10/16/23 at 0713, Until Dulce 10/16/23 at 1237, For 2 doses, 2nd dose may be given in 15-30 minutes if first dose not effective. Maximum of 2 doses only. If multiple medications are ordered for nausea or vomiting - administer in the following priority based on medications ordered, effectiveness and availability: ondansetron (ZOFRAN) > prochlorperazine (COMPAZINE) > diphenhydrAMINE (BENADRYL) > hydrOXYzine HCl (VISTARIL)> ePHEDrine > scopolamine (TRANSDERM-SCOP)., PACU/Recovery sodium chloride for irrigation 0.9 % ONCE PRN, Starting on Dulce 10/16/23 at 0841, Intra-op Given 10/16/2023 8:41 AM CDT [address] documented in this encounter Active and Recently Administered Medications Times are shown in CDT. Scheduled Medication Order 10/14/2023 10/15/2023 10/16/2023 ceFAZolin (ANCEF) 2 g in dextrose 100 mL premade IVPB (COMPLETED) 2 g, Intravenous, Administer over 30 Minutes, ONCE, On Dulce 10/16/23 at 0745, For 1 dose, Infuse within 60 minutes prior to incision; Re-dose 1 gram IV every 4 hours after initial dose until incision closed., Pre-op 0814 (Given - Provid er: Ankur Garcia, BASIN FINISH OPERATOR TIG WELDER, RHETT) lidocaine PF (XYLOCAINE) 1 % injection 0.1-0.3 mL(Linked Group 1) 0.1-0.3 mL, Intradermal, ONCE, On Dulce 10/16/23 at 0745, For 1 dose, Lidocaine to be used for IV starts unless patient refuses., Pre-op 0745 (Due) Continuous Medication Order 10/14/2023 10/15/2023 10/16/2023 lactated ringers infusion 25 mL/hr, Intravenous, CONTINUOUS, Starting on Dulce 10/16/23 at 0730, Administer on all preop surgery patients, ages 12 and older, unless specified differently in the Protocol for Preop Initiation of IV fluids Order Set., Pre-op 0740 (Started - Prov ider: Aneta Quintana RN)0814 (Continued by Anesthesia - Provider: Ankur Garcia APRN, RHETT)0814 (Stopped - Provider: Ankur Garcia APRN, CRNA - Comment: Switch to gravity)0815 (Restarted - Provider: Ankur Garcia APRN, RHETT)0825 (Anesthesia Fluid - Provider: Ankur Garcia APRN, RHETT)0849 (Anesthesia Fluid - Provider: Ankur Garcia APRN, RHETT)0914 (Anesthesia Fluid - Provider: Ankur Garcia APRN, RHETT)1000 (Stopped - Provider: Adiel Ovalle RN) PRN Medication Order 10/14/2023 10/15/2023 10/16/2023 BUPivacaine (MARCAINE) 0.5 % injection ONCE PRN, Starting on Dulce 10/16/23 at 0908, Intra-op 0908 (Given - Provid er: Goyo Bobby DPM) dexAMETHasone (DECADRON) injection ONCE PRN, Starting on Dulce 10/16/23 at 0841, Until Dulce 10/16/23 at 1237, Intra-op 0841 (Given - Provid er: Goyo Bobby DPM) diphenhydrAMINE (BENADRYL) injection 25 mg 25 mg, Intravenous, ONCE PRN, Other, for Nausea or Vomiting, Starting on Dulce 10/16/23 at 0713, Until Dulce 10/16/23 at 1237, For 1 dose, If multiple medications are ordered for nausea or vomiting - administer in the following priority based on medications ordered, effectiveness and availability: ondansetron (ZOFRAN) > prochlorperazine (COMPAZINE) > diphenhydrAMINE (BENADRYL) > hydrOXYzine HCl (VISTARIL)> ePHEDrine > scopolamine (TRANSDERM-SCOP)., PACU/Recovery ePHEDrine injection 25 mg 25 mg, Intramuscular, ONCE PRN, Other, for nausea or vomiting, Starting on Dulce 10/16/23 at 0713, For 1 dose, If multiple medications are ordered for nausea or vomiting - administer in the following priority based on medications ordered, effectiveness and availability: ondansetron (ZOFRAN) > prochlorperazine (COMPAZINE) > diphenhydrAMINE (BENADRYL) > hydrOXYzine HCl (VISTARIL)> ePHEDrine > scopolamine (TRANSDERM-SCOP)., PACU/Recovery fentaNYL (SUBLIMAZE) injection 25-50 mcg 25-50 mcg, Intravenous, [id number], Pain, Procedure, Starting on Dulce 10/16/23 at 0718, Until Dulce 10/16/23 at 1237, For 2 doses, As directed by anesthesiologist, Pre-op fentaNYL (SUBLIMAZE) injection 50 mcg 50 mcg, Intravenous, [id number], Pain, The immediate postop period when faster on-set, short acting agent is desired., Starting on Dulce 10/16/23 at 0713, Until Dulce 10/16/23 at 1237, Administer every 5 minutes as needed, to a maximum cumulative dose of 250 mcg. Call Anesthesiologist if additional or greater doses needed For patients with a regional, spinal, or local anesthetic, may give for anticipated pain as the anesthetic wears off. Use fentanyl initially for a short acting agent for treatment of acute post-operative pain.?May be used in conjunction with alonger acting agent if ordered for optimal pain control.?Respiratory rate must be greater than 10 to administer medications., PACU/Recovery hydrALAZINE (APRESOLINE) injection 5 mg 5 mg, Intravenous, Q10MIN PRN, Other, High Blood Pressure, MAX 4 doses, hold for HR <50, Starting on Dulce 10/16/23 at 0713, Until Dulce 10/16/23 at 1237, For 4 doses, Call Anesthesiologist before administration. Give as directed by Anesthesiologist., PACU/Recovery HYDROcodone-acetaminophen (NORCO) 5-325 MG per tablet 1-2 Tablet 1-2 Tablet, Oral, Q4H PRN, Other, Moderate Pain (pain score 5-7), Starting on Dulce 10/16/23 at 0944, Until Dulce 10/16/23 at 1237, Post-op HYDROmorphone (DILAUDID) injection 0.25 mg 0.25 mg, Intravenous, Q10MIN PRN, Pain, The immediate postop period when longer acting agent is desired., Starting on Dulce 10/16/23 at 0713, Until Dulce 10/16/23 at 1237, Maximum cumulative dose is 2 mg in PACU, call Anesthesiologist if additional or greater dosing is needed. For patients with a regional, spinal, or local anesthetic, may give for anticipated pain as the anesthetic wears off. , PACU/Recovery hydrOXYzine HCl (VISTARIL) injection 25 mg 25 mg, Intramuscular, ONCE PRN, Nausea/Vomiting, Starting on Dulce 10/16/23 at 0713, Until Dulce 10/16/23 at 1237, For 1 dose, If multiple medications are ordered for nausea or vomiting - administer in the following priority based on medications ordered, effectiveness and availability: ondansetron (ZOFRAN) > prochlorperazine (COMPAZINE) > diphenhydrAMINE (BENADRYL) > hydrOXYzine HCl (VISTARIL)> ePHEDrine > scopolamine (TRANSDERM-SCOP)., PACU/Recovery labetalol (NORMODYNE) injection 5 mg 5 mg, Intravenous, Q10MIN PRN, Other, High Blood Pressure, MAX 5 doses, hold for HR <50, Starting on Dulce 10/16/23 at 0713, Until Dulce 10/16/23 at 1237, For 5 doses, Call Anesthesiologist before administration. Give as directed by Anesthesiologist., PACU/Recovery lidocaine (XYLOCAINE) 2 % injection ONCE PRN, Starting on Dul[place] 10/16/23 at 0841, Intra-op 0841 (Given - Provid er: Goyo Bobby, HUY) lidocaine PF (XYLOCAINE) 1 % injection 0.1-0.3 mL(Linked Group 1) 0.1-0.3 mL, Intradermal, PRN, Other, for additional IV starts, Starting on Dulce 10/16/23 at 0718, Pre-op midazolam (VERSED) injection 0.5-1 mg 0.5-1 mg, Intravenous, [id number], Anxiety, Starting on Dulce 10/16/23 at 0713, Until Dulce 10/16/23 at 1237, Maximum cumulative dose is 2 mg. TO BE GIVEN IN PACU ONLY., PACU/Recovery midazolam (VERSED) injection 1-2 mg 1-2 mg, Intravenous, [id number], Sedation, Anxiety, Procedure, Starting on Dulce 10/16/23 at 0718, Until Dulce 10/16/23 at 1237, As directed by anesthesiologist MAX Dose 2mg, Pre-op naloxone (NARCAN) injection 0.08 mg 0.08 mg, Intravenous, PRN, Other, For respiratory rate less than 8/minute or patient difficult to arouse, Starting on Dulce 10/16/23 at 0713, Until Dulce 10/16/23 at 1237, May repeat every 3 minutes or until patient is responsive to physical stimulation and is able to take deep breaths. Maximum cumulative dose is 0.4 mg (1 mL). Continue to observe; if no response after administering total dose of 0.4 mg notify anesthesiologist STAT., PACU/Recovery naloxone (NARCAN) injection 0.4 mg 0.4 mg, Intravenous, ONCE PRN, Opioid Reversal, Starting on Dulce 10/16/23 at 0713, Until Dulce 10/16/23 at 1237, For 1 dose, For imminent respiratory arrest. Notify MD if naloxone is given., PACU/Recovery ondansetron (ZOFRAN) injection 4 mg 4 mg, Intravenous, Q4H PRN, Nausea, Vomiting, Starting on Dulce 10/16/23 at 0713, Until Dulce 10/16/23 at 1237, If multiple medications are ordered for nausea or vomiting - administer in the following priority based on medications ordered, effectiveness and availability: ondansetron (ZOFRAN) > prochlorperazine (COMPAZINE) > diphenhydrAMINE (BENADRYL) > hydrOXYzine HCl (VISTARIL)> ePHEDrine > scopolamine (TRANSDERM-SCOP)., PACU/Recovery prochlorperazine (COMPAZINE) injection 5 mg 5 mg, Intravenous, Q15MIN PRN, Nausea, Vomiting, Starting on U[place] 10/16/23 at 0713, Until Dulce 10/16/23 at 1237, For 2 doses, 2nd dose may be given in 15-30 minutes if first dose not effective. Maximum of 2 doses only. If multiple medications are ordered for nausea or vomiting - administer in the following priority based on medications ordered, effectiveness and availability: ondansetron (ZOFRAN) > prochlorperazine (COMPAZINE) > diphenhydrAMINE (BENADRYL) > hydrOXYzine HCl (VISTARIL)> ePHEDrine > scopolamine (TRANSDERM-SCOP)., PACU/Recovery sodium chloride for irrigation 0.9 % ONCE PRN, Starting on Dul[place] 10/16/23 at 0841, Intra-op 0841 (Given - Provid er: Goyo Bobby DPM) Linked Groups Order Group 1: lidocaine PF (XYLOCAINE) 1 % injection 0.1-0.3 mLJump to med 0.1-0.3 mL, Intradermal, ONCE, On Dulce 10/16/23 at 0745, For 1 dose, Lidocaine to be used for IV starts unless patient refuses., Pre-op And lidocaine PF (XYLOCAINE) 1 % injection 0.1-0.3 mLJump to med 0.1-0.3 mL, Intradermal, PRN, Other, for additional IV starts, Starting on Dulce 10/16/23 at 0718, Pre-op documented in this encounter Care Teams Plexiglas Former Relationship Specialty Start Date End Date Jose Velásquez MD [address] [place] [address] PCP - General Internal Medicine 04/10/23 documented as of this encounter
--- OUTSIDE RECORDS SUMMARY | 2023-11-20 06:52 | XMS_ITS | Encounter Summary ---
Author Organization [employer] Address [address] [address] Care Team Providers Care Mold Presser Name Role Phone Jose Velásquez MD Primary Care Provider Reason for Visit * Procedure/Equipment (Routine) - Incomplete Specialty Diagnoses / Procedures Referred By Chenchoac t Referred To Contact Diagnoses Unknown cause of injury, subsequent encounter Procedures FL C Arm Mini Goyo Bobby DPM [address] [place] [address] Referral ID Status Reason Start Date Expiration Date V isits Requested Visits Authorized [id number] Incomplete 11/10/2023 02/08/2025 1 1 Encounter Details Date Type Department Care Team (Latest Contact Info) Description 11/10/2023 8:00 AM CDT Ancillary Procedure [place] [id number] Radiology [address] [facility]. [place], [place] [id number] Goyo Bobby DPM [address] [place], [place] [phone] Unknown cause of injury, subsequent encounter Social History Tobacco Use Types Packs/Day [...] Info) Description 11/25/2023 1:45 PM CDT Appointment [facility] P38 Podiatric MedSurg [address] [facility]. [place], [place] [id number] Goyo Bobby DPM [address] [place], [place] [phone] documented as of this encounter Procedures Procedure Name Priority Date/Time Associated Diagnosis Comments FL C ARM MINI Routine 10/16/2023 8:59 AM CDT Unknown cause of injury, subsequent encounter documented in this encounter Results * FL C Arm Mini (10/16/2023 8:59 AM CDT) Anatomical Region Laterality Modality Radio Fluoroscop y Narrative 11/10/2023 8:01 AM CDT These images were obtained during a surgical procedure. Goyo PURCELLM RAD FL documented in this encounter Visit Diagnoses Diagnosis Unknown cause of injury, subsequent encounter documented in this encounter Care Teams Mold Presser Relationship Specialty Start Date End Date Jose Velásquez MD [address] [place] [address] PCP - General Internal Medicine 04/10/23 documented as of this encounter
--- OUTSIDE RECORDS SUMMARY | 2023-11-20 06:52 | XMS_ITS | Encounter Summary ---
Author Organization [employer] Address [address], [place] [address] Care Team Providers Care Medical Observer Name Role Phone Jose Velásquez MD Primary Care Provider Reason for Visit * Procedure/Equipment (Routine) - Incomplete Specialty Diagnoses / Procedures Referred By Honey t Referred To Contact Diagnoses Foot pain, right Procedures XR Foot Rt 3+ Views Goyo Bobby, DPM [address] [place] [address] Referral ID Status Reason Start Date Expiration Date V isits Requested Visits Authorized [id number] Incomplete 09/03/2023 12/02/2024 1 1 Encounter Details Date Type Department Care Team (Late st Contact Info) Description 09/03/2023 8:40 AM CDT Ancillary Procedure [facility] [address] [place] [address] Goyo Bobby, DPM [address] [place] [address] Foot pain, right Social History Tobacco Use Types Packs/Day [...] Info) Description 11/25/2023 1:45 PM CDT Appointment [facility] P3800 Podiatric MedSurg [address] [facility]. [place], [place] [phone] Goyo Bobby DPM [address] [place] [address] documented as of this encounter Procedures Procedure Name Priority Date/Time Associated Diagnosis Comments XR FOOT RT 3+ VIEWS Routine 09/03/2023 8 :46 AM CDT Foot pain, right documented in this encounter Results * XR Foot Rt 3+ Views (09/03/2023 8:46 AM CDT) Anatomical Region Laterality Modality Lower Extremity, Foot Digital Ra diography 09/03/2023 8:40 AM CDT Impressions 09/03/2023 9:39 AM CDT COMPARISON: ??03/05/2019 FINDINGS: 3 views. No fracture or acute bony abnormality. Normal alignment. Mild degenerative change of the first MTP joint. Plantar calcaneal spur. Soft tissues are unremarkable. Narrative Procedure Note Ekta Austin MD - 09/03/2023 IMPRESSION COMPARISON: 03/05/2019 FINDINGS: 3 views. No fracture or acute bony abnormality. Normalalignment. Mild degenerative change of the first MTP joint. Plantarcalcaneal spur. Soft tissues are unremarkable. Goyo Bobby DPM RAD GD documented in this encounter Visit Diagnoses Diagnosis Foot pain, right Pain in limb documented in this encounter Care Teams Medical Observer Relationship Specialty Start Date End Date Jose Velásquez MD [address] [place] [address] PCP - General Internal Medicine 04/10/23 documented as of this encounter
--- OUTSIDE RECORDS SUMMARY | 2023-11-20 06:52 | XMS_ITS | Encounter Summary ---
Author Organization [facility] Address [address], [place] [address] Care Team Providers Care Checker Product Design Name Role Phone Jose Velásquez MD Primary Care Provider Reason for Referral * Procedure/Equipment (Routine) - Incomplete Specialty Diagnoses / Procedures Referred By Honey obrien Referred To Contact Diagnoses Hallux valgus, right Tailor's bunion of right foot Procedures Turning Knee Walker ([id number]) Goyo Bobby DPM [address] [place] [address] Referral ID Status Reason Start Date Expiration Date V isits Requested Visits Authorized [id number] Incomplete 09/03/2023 12/02/2024 1 1 * Procedure/Equipment (Routine) - Incomplete Specialty Diagnoses / Procedures Referred By Honey obrien Referred To Contact Diagnoses Hallux valgus, right Tailor's bunion of right foot Procedures Case Request OR - Podiatry Surgery: BUNIONECTOMY WITH OSTEOTOMY AND TAILOR'S BUNIONECTOMY WITH OSTEOTOMY AND K-WIRE FIXATION Goyo Bobby DPM [address] [place] [address] Referral ID Status Reason Start Date Expiration Date V isits Requested Visits Authorized [id number] Incomplete 09/03/2023 12/02/2024 1 1 * Procedure/Equipment (Routine) - Incomplete Specialty Diagnoses / Procedures Referred By Honey obrien Referred To Contact Diagnoses Foot pain, right Procedures XR Foot Rt 3+ Views Goyo Bobby, DPM [address] [place] [address] Referral ID Status Reason Start Date Expiration Date V isits Requested Visits Authorized [id number] Incomplete 09/03/2023 12/02/2024 1 1 Reason for Visit * Reason Comments Foot Pain Right foot bunion an d tailor's bunion Encounter Details Date Type Department Care Team (Late st Contact Info) Description 09/03/2023 8:45 AM CDT Office Visit [facility] [address] [place] [address] Goyo Bobby, DPM [address] [place], [place] [phone] Foot pain, right (Primary Dx); Hallux valgus, right; Tailor's bunion of right foot Social History [...] on file documented as of this encounter Patient Instructions * Patient Instructions* Marie Latif RN - 09/03/2023 8:45 AM CDT Blaine García The link to access your surgical packet. If you are unable to access the link please reach to the clinic. [email or web address] ([email or web address]) Covid Testing for Surgery Effective December 24 2021 [facility] is no longer requiring pre-procedural and pre-surgical COVID testing for patients that are not expected to be hospitalized. You will be screened for covid symptoms prior to checking in for your procedure or when you are contacted by the same day surgery nurse 2-3 days prior to your procedure. Patient who are symptomatic and have a positive covid test will be rescheduled. Thus, to avoid delays in your care please consider taking added COVID precautions starting two weeks prior to your scheduled surgery and minimize your contacts to the least extent possible. Practice social distancing and maintain a distance of at least six feet from others, even if everyone is wearing masks. Wear a mask anytime you are indoors with people outside of your household. Use frequent hand washing and avoid touching your face and eyes. Consider ordering groceries online or using curbside pickup. hospice home health aide for the two weeks before surgery if you are able. Deep Vein Thrombus (DVT) Foot and ankle surgery can lead to blood clots in the large veins of your legs or abdomen. This is called Deep Venous Thrombosis or DVT. A DVT can be life threatening if a portion of the clot breaks away and travels to the lungs. This is called a Pulmonary Embolism or PE. Your risk of developing a DVT is dependent on many factors. Risk factors associated with surgery include the type of surgery you have (foot and ankle surgery is considered low risk compared with knee, hip or abdominal surgery), how long you are in a cast, restricted ambulation (walking), inability to move the ankle and if you are hospitalized after surgery. A number of medical conditions also increase your risk of DVT including: diabetes, use of estrogen medications such as in control pills or post- menopausal medications, obesity, , heartfailure, cancer, etc. Other risk factors include heavy smoking, advanced age (over 60, but even people over 40 have increased risk), family or personal history of blood clots or clotting disorders. Symptoms of a DVT in the leg may include swelling, tenderness, a warm feeling or redness. DVT is more likely to develop in the leg that had surgery but also be on the lookout for symptoms in your other leg as well. If you have these symptoms, you should call your clinic. If the clinic is closed it is important that you are seen in Urgent Care or the Emergency Room. Symptoms of a PE include chest pain, shortness of breath or the need to breath rapidly that is not associated with exercise, difficulty breathing, rapid heart rate, a feeling of passing out and coughing or coughing up blood. PE is an emergency so you need to be evaluated in the emergency room immediately if any of these symptoms occur. Pulmonary Embolism is life threatening and could be fatal, socall 911 if you are experiences the symptoms described above. PE and DVT can occur without any symptoms in the leg or chest. Prevention of DVT and pulmonary embolism is important. Your doctor may apply various types of compression to your legs before and after surgery. In addition, high risk patients may be placed on bloodthinning medication after the surgery for a few weeks. You can reduce your risk of DVT after surgery by moving around the house twice each hour while awake during the first few weeks ( be sure to follow your doctor's instructions on elevation and weight bearing restrictions). Please refer to page 10 of Surgical Packet Seated range of motion exercises of your ankle and leg can also help. Moving your legs keeps blood moving through leg veins and reduces any pooling of blood that may clot. Leg exercises: Ankle pumps, ankle circles, knee bends, and leg lifts 10 repetitions 4-5 times daily Please read below regarding your surgical prior authorization Some insurance companies require a prior authorization for surgical procedures. There are teams in place within the [facility] and [facility] systems who will work with your insurance to obtain the prior authorization. In most cases prior authorizations are obtained easily and without delay; however, if a problem arises causing a delay in gaining the prior authorization or if the authorization is denied we will contact you with this information as soon as it becomes available. Please refer to your surgical packet for detailed information and instructions on checking with your insurance carrier regarding coverage for your surgical procedure. documented in this encounter Progress Notes * Goyo Bobby DPM - 09/03/2023 8:45 AM CDT Billing for today's visit was based on time. Total Visit Time: 40 minutes, with time spent in direct face to face counseling and/or coordinationof care involving discussion of diagnosis, prognosis, education, reviewing records, examining patient, care planning including discussion of diagnostic results, risks and benefits of treatment. Totaltime by the provider on the day of the encounter includes edw-ivdd-up-face services such as pre-visit chart review, charting, and updating electronic records. * Goyo Bobby DPM - 09/03/2023 12:00 AM CDT NAME: MALAIKA GARCÍA CSN: [id number] CLINIC NOTE DATE OF SERVICE: 09/03/2023 : 1960 SUBJECTIVE: Patient is presenting to clinic today for evaluation of a painful bunion and tailor's bunion to the left foot. I last saw her in May 2022 following 1st metatarsophalangeal joint arthrodesis and tailor's bunionectomy to the left foot. She now is having no pain to the left and would like to address her right foot. The right foot is painful on a daily basis with limitation of activity and shoe gear. She has tried conservative measures for greater than a year of icing, anti-inflammatories, adjusting shoes and activities. MEDICATIONS: Reviewed in medication list on this date. ALLERGIES: REVIEWED IN EPIC ALLERGY LIST ON THIS DATE. OBJECTIVE: GENERAL: A 62-year-old female, in no acute distress. Alert and oriented x3. EXTREMITIES: Pedal pulses are palpable. Skin is warm to touch. Normal texture, turgor, as well as distribution of pedal hair growth. Range of motion of the ankle, rearfoot, midfoot, and forefoot is within normal limits without pain or crepitation on the right. On the left, she is status post 1st met atarsophalangeal joint arthrodesis. Left foot is well healed and nontender to palpation today. On the right, she has a moderate lateral deviation of the hallux and increased medial and dorsal prominence of 1st metatarsophalangeal joint. Range of motion is within normal limits to the site. She also has a lateral prominence to the 5th metatarsal head that is tender to palpation as well. No erythema, no edema, ulcerations, or open wounds present to the site today. She has noted discomfort with palpation of both the medial aspect of the 1st metatarsal head and the lateral aspect of the 5th metatarsal head on the right foot. She did undergo x-rays 3 views weightbearing right foot. These were independently reviewed by me today reveal moderate increase in intermetatarsal angle as well as hallux abductus angle on the right foot as well as a lateral prominence of the 5th metatarsal head. ASSESSMENT: 1.Painful bunion and tailor's bunion, right foot. 2.Greater than 1 year status post 1st metatarsophalangeal joint arthrodesis and tailor's bunionectomy left foot. PLAN: Discussed treatment options and alternatives with patient. She feels that she has exhausted conservative measures. Therefore, we discussed the proposed surgical procedure of a chevron bunionectomy and a tailor's bunionectomy of the right foot with K-wire fixation. She is aware we may have to use other hardware depending on findings intraoperatively. The proposed surgical procedure, postoperative course, potential complications including, but not limited to, postoperative pain, swelling, infection, failure of the procedure, need for further procedures in the future. She understood the nature of all above aspects. All patient questions were answered. Patient underwent preoperative education today. Aftercare was discussed, is going to contact my rehabilitation aide/scheduler at her convenience. GOYO BOBBY DPM CHS/AQS /[id number] documented in this encounter Plan of Treatment Upcoming Encounters Date Type Department Care Team (Late st Contact Info) Description 11/25/2023 1:45 PM CDT Appointment [facility] P3800 Podiatric MedSurg [address] [place] [address] Goyo Bobby DPM [address] [place] [address] documented as of this encounter Results * XR Foot Rt [...] this encounter Visit Diagnoses Diagnosis Foot pain, right- Primary Pain in limb Hallux valgus, right Tailor's bunion of right foot Foot pain, right Pain in limb documented in this encounter Care Teams Checker Product Design Relationship Specialty Start Date End Date Jose Velásquez MD [address] [place] [address] PCP - General Internal Medicine 04/10/23 documented as of this encounter
--- OUTSIDE RECORDS SUMMARY | 2023-11-20 06:52 | XMS_ITS | Encounter Summary ---
Author Organization [employer] Address [address] [address] Care Team Providers Care Cio Name Role Phone Jose Velásquez MD Primary Care Provider Reason for Referral * Procedure/Equipment (Routine) - Incomplete Specialty Diagnoses / Procedures Referred By Honey obrien Referred To Contact Diagnoses Hallux valgus, right Procedures XR Foot Rt 3+ Views Goyo Bobby DPM [address] [address] Referral ID Status Reason Start Date Expiration Date V isits Requested Visits Authorized [id number] Incomplete 10/20/2023 01/18/2025 1 1 Reason for Visit * Reason Comments Post-Op Check Encounter Details Date Type Department Care Team (Late st Contact Info) Description 10/20/2023 2:30 PM CDT Office Visit [facility] P3800 Podiatric MedSurg [address] [facility] [place] [address] Nurse, P3800 Pod Med Surg Hallux valgus, right (Primary Dx); Orthopedic aftercare Social History Tobacco Use Types [...] as of this encounter Progress Notes * Erica Potter RN - 10/20/2023 2:30 PM CDT Podiatric Medicine and Surgery Post-Operative Note (Dx: Z47.89. Billing [id number]) Surge/on: Dr. Bobby DOS: 10/16/23 Surgery: Chevron bunionectomy, right foot. 2. Tailors bunionectomy, right foot. Days Post-op: 4 days Weight Bearing Status: Strict NWB for 4 weeks from DOS Pain Location: surgical foot with numbness and tingling Pain Ratin/10 Pain Medication: Tylenol as needed Post-operative Dressings: PO dressing intact; removed in clinic and new dressing applied Incision: CDI with sutures Drainage: dried blood noted on PO dressing Wound Care: incision cleansed with Betadine/alcohol, covered with gauze, kerlix, DUTCH wrap, stockinette Assessment: Normal post-operative healing and progress Patient verbalized understanding of post-operative plan and signs and symptoms of complications to report to clinic/MD Plan Suture removal next visit x2 Pins intact x2 documented in this encounter Plan of Treatment Upcoming Encounters Date Type Department Care Team (Late st Contact Info) Description 11/25/2023 1:45 PM CDT Appointment [facility] P3800 Podiatric MedSurg [address] [facility] [place] [address] Goyo Bobby DPM [address] [place] [address] documented as of this encounter Results * [...] Visit Diagnoses Diagnosis Hallux valgus, right- Primary Orthopedic aftercare Unspecified orthopedic aftercare Hallux valgus, right documented in this encounter Care Teams Cio Relationship Specialty Start Date End Date Jose Velásquez MD [address] [place] [address] [place] [address] PCP - General Internal Medicine 04/10/23 documented as of this encounter
--- OUTSIDE RECORDS SUMMARY | 2023-11-20 06:52 | XMS_ITS | Clinical Summary ---
Author Organization [employer] Address [place], [place] [address] Care Team Providers Care Office Systems Technology Instructor Name Role Phone Santa Avilez Primary Care Provi rob Unavailable Allergies No known active allergies Medications Medication Sig Dispensed Refills Start Date End Date Status FEXOFENADINE HCL (MARCELLO ALLERGY ORAL) Take by mouth every morning. Active CITALOPRAM HYDROBROMIDE (CELEXA ORAL) Take by mouth every morning. Active buPROPion (WELLBUTRIN SR) 150 mg Sustained-Release tabletIndications:an xiety with depression Take 150 mg by mouth every morning. Indications: Anxiety with Depression Active RANITIDINE HCL (ZANTAC ORAL) Take by mouth every morning. Active CYCLOBENZAPRINE HCL (FLEXERIL ORAL)Indications:mus issac spasms in neck Take by mouth at bedtime if needed. Indications: muscle spasms in neck Active buPROPion (WELLBUTRIN XL) 150 mg Extended-Release tablet Take 150 mg by mouth every morning. Active citalopram (CELEXA) 40 mg tablet Take 40 mg by mouth every morning. Active cyclobenzaprine (FLEXERIL) 10 mg tablet Take 10 mg by mouth at bedtime if needed for Muscle Spasm. Active SUMAtriptan (IMITREX) 50 mg tablet Take 50 mg by mouth every 2 hours if needed for Migraine. Max dose: 200mg per 24 hrs. Active ondansetron (ZOFRAN ODT) 4 mg disintegrating tabletIndications:Lo wer abdominal pain Place 1 tablet on the tongue every 6 hours if needed for Nausea/Vomiting. 10 tablet 03/04/2016 Active HYDROcodone-acetamin ophen, 5-325 mg, (NORCO) per tabletIndications:Lo wer abdominal pain,Elevated liver enzymes Take 1-2 tablets by mouth every 6 hours if needed for Pain Max acetaminophen dose: 4000mg in 24 hrs. 8 tablet 03/04/2016 Active loperamide (IMODIUM) 2 mg capsuleIndications:D iarrhea, unspecified type Take 4mg by mouth with 1st loose stool, then 2mg with each subsequent loose stool. Max 16 mg in 24 hrs 20 capsule 02/25/2017 Active dicyclomine (BENTYL) 10 mg capsuleIndications:L LQ abdominal pain Take 1 capsule by mouth 4 times daily before meals and at bedtime. 20 capsule 02/25/2017 Active Active Problems Problem Noted Date Diagnosed Date Acute diverticulitis 03/03/2016 Anxiety and depression 03/03/2016 Social History Tobacco Use Types Packs/Day Years Used Date Smoking Tobacco: Former Cigarettes Q uit: 03/03/1980 Alcohol Use Standard Drinks/Week Comments Yes 5 (1 standard drink = 0.6 oz pur e alcohol) Sex and Gender Information Value Date Recorded Sex Assigned at Not on file Gender Identity Not on file Sexual Orientation Not on file Obstetrics History Last Filed Vital Signs Vital Sign Reading Time Taken Comments Blood Pressure 127/64 02/25/2017 8:17 PM VAT OVERHAULER Pulse 100 02/25/2017 8:17 PM VAT OVERHAULER Temperature 36.8 ??C (98.2 ??F) 02/25/2017 8:17 PM CS T Respiratory Rate 16 02/25/2017 8:17 PM VAT OVERHAULER Oxygen Saturation 95% 02/25/2017 8:17 PM VAT OVERHAULER Inhaled Oxygen Concentration - - Weight 70.9 kg (156 lb 6.4 oz) 02/25/2017 8:17 P M VAT OVERHAULER Height 160 cm (5' 3) 02/25/2017 8:17 PM VAT OVERHAULER Body Mass Index 27.71 02/25/2017 8:17 PM VAT OVERHAULER Plan of Treatment Health Maintenance Due Date Last Done Comments Tdap 10/28/1970 Depression screening for age 12+ 1971 HIV for age 15-65 10/28/1974 BMI (ht and wt on same day) for age 18+ 10/28/1977 Hepatitis C screening for age 18-79 10/28/1977 Tetanus booster 1979 Pap test for age 21-65 10/28/1980 Colonoscopy through age 75 10/28/2004 Lipids for age 45-75 10/28/2004 Mammogram for age 45-75 10/28/2004 Zoster (shingles) series for age 50+ (1 of 2) 10/28/2009 COVID-19 vaccine series (2023- season) 2023 01/25/2023, 11/19/2021, 07/12/2021, Additional history exists Influenza for age 50-64 10/26/2023 Pneumococcal series for age 6-64 Aged Out No longer eligible based on patient's age to complete this topic Advance Directives * Full Code (Latest Code Status on File) Date Activated Date Inactivated Comments 03/03/2016 3:20 AM 03/04/2016 6:47 PM Question Answer Comments Code Status Discussion: Per Existing OrderNot Di scussed Care Teams Office Systems Technology Instructor Relationship Specialty Start Date End Date Santa Avilez PA PCP - General Physician Alberene Stone Setter 03/04/16
--- OUTSIDE RECORDS SUMMARY | 2023-11-20 06:52 | XMS_ITS | Encounter Summary ---
Author Organization [facility] Address [address] [place] [address] Care Team Providers Care Instant Print Operator Name Role Phone Jose Velásquez MD Primary Care Provider Encounter Details Date Type Department Care Team (Late st Contact Info) Description 10/13/2023 E-Visit [facility] [address] Ambul Surgery [address] [place], [place] [address] [place] [address] Social History Tobacco Use Types Packs/Day Years [...] Info) Description 11/25/2023 1:45 PM CDT Appointment [facility] P3800 Podiatric MedSurg [address] [facility]. [place], [place] [id number] Goyo Bobby, DPM [address] [place], [place] [address] documented as of this encounter Visit Diagnoses Not on filedocumented in this encounter Care Teams Instant Print Operator Relationship Specialty Start Date End Date Jose Velásquez MD [address] [place] [address] PCP - General Internal Medicine 04/10/23 documented as of this encounter
--- OUTSIDE RECORDS SUMMARY | 2023-11-20 06:52 | XMS_ITS | Encounter Summary ---
Author Organization [employer] Address [address] [address] Care Team Providers Care Route Sales Representative Name Role Phone Jose Velásquez MD Primary Care Provider Reason for Visit * Auth/Cert (Routine) Specialty Diagnoses / Procedures Referred By Honey obrien Referred To Contact Diagnoses Hallux valgus, right Tailor's bunion of right foot Procedures BUNIONECTOMY WITH OSTEOTOMY AND TAILOR'S BUNIONECTOMY WITH OSTEOTOMY AND K-WIRE FIXATION Referral ID Status Reason Start Date Expiration Date Visits Re quested Visits Authorized [id number] 1 1 Encounter Details Date Type Department Care Team (Latest Contact Info) Description 10/16/2023 7:14 AM CDT - 10/16/2023 10:30 AM CDT Hospital Encounter [facility] [address] [facility] [address] [facility] [place] [address] Goyo Bobby, DPYari [address] [place] [address] Hallux valgus, right; Tailor's bunion of right foot Discharge Disposition: Home Social History Tobacco Use Types Packs/Day Years [...] Evaluation completed by: Jose Velásquez MD Primary medication care manager: Jose Velásquez MD [phone] CHIEF COMPLAINT Pre-Operative Evaluation ANTICIPATED PROCEDURE Chief Complaint Patient presents with PRE-OP EXAM Right foot surgery: BUNIONECTOMY WITH OSTEOTOMY AND TAILOR'S BUNIONECTOMY WITH OSTEOTOMY AND K-WIREFIXATION, 10/16/[address] Bobby at the [facility] F[facility] HISTORY OF PRESENT ILLNESS Right Foot symptomatic [...] (postoperative nausea and vomiting) Schwannoma followed by [place] Past Surgical History: Procedure Laterality Date ENDOMETRIAL [...] 9:26 AM CDT NAME: Malaika Hitchcock MR#: [id number] CSN:[id number] AUTHENTICATING CLINICIAN: Goyo Bobby DPM LOC: 1 OPERATIVE REPORT DATE [...] Bobby DPM - 10/16/2023 9:26 AM CDT [facility] Brief Operative Progress Note Surgery Date: [...] Info) Description 11/25/2023 1:45 PM CDT Appointment [facility] P3800 Podiatric MedSurg [address] [facility] [place], [place] [id number] Goyo Bobby DPM [address] [place] [address] documented as of this encounter Procedures Procedure [...] AM CDT PPA call completed by calling [phone] and spoke to patient. Advised of arrival time 0725. Reviewed pre-procedure questions, detailed instructions, with NPO guidelines, entry driver operator requirements and address given. All questions answered, no other needs at this time. Call back number [phone] for any questions/concerns. This information was also provided to patient via [employer]. documented in this encounter Admitting Diagnoses Diagnosis [...] (SUBLIMAZE) injection 25-50 mcg 25-50 mcg, Intravenous, [id number], Pain, Procedure, Starting on Dulce 10/16/23 at 0718, Until Dulce 10/16/23 at 1237, For 2 doses, As directed by anesthesiologist, Pre-op fentaNYL (SUBLIMAZE) injection 50 mcg 50 mcg, Intravenous, [id number], Pain, The immediate postop period when faster [...] (VERSED) injection 0.5-1 mg 0.5-1 mg, Intravenous, [id number], Anxiety, Starting on Dulce 10/16/23 at 0713, Until Dulce 10/16/23 at 1237, Maximum cumulative dose is 2 mg. TO BE GIVEN IN PACU ONLY., PACU/Recovery midazolam (VERSED) injection 1-2 mg 1-2 mg, Intravenous, [id number], Sedation, Anxiety, Procedure, Starting on Dulce 10/16/23 [...] 0814 (Given - Provid er: Ankur Garcia, TANNING WHEEL OPERATOR, RHETT) lidocaine PF (XYLOCAINE) 1 % injection [...] by Anesthesia - Provider: Ankur Garcia APRN, DIRECTOR STUDENT UNION)0814 (Stopped - Provider: Ankur Garcia APRN, RHETT - Comment: Switch to gravity)0815 (Restarted - Provider: Ankur Garcia APRN, DIRECTOR STUDENT UNION)0825 (Anesthesia Fluid - Provider: Ankur Garcia APRN, DIRECTOR STUDENT UNION)0849 (Anesthesia Fluid - Provider: Ankur Garcia APRN, DIRECTOR STUDENT UNION)0914 (Anesthesia Fluid - Provider: Ankur Garcia APRN, DIRECTOR STUDENT UNION)1000 (Stopped - Provider: Adiel Ovalle RN) PRN [...] (SUBLIMAZE) injection 25-50 mcg 25-50 mcg, Intravenous, [id number], Pain, Procedure, Starting on Dulce 10/16/23 at 0718, Until Dulce 10/16/23 at 1237, For 2 doses, As directed by anesthesiologist, Pre-op fentaNYL (SUBLIMAZE) injection 50 mcg 50 mcg, Intravenous, [id number], Pain, The immediate postop period when faster [...] Moderate Pain (pain score 5-7), Starting on Fri10/16/23 at 0944, Until Fri10/16/23 at 1237, Post-op HYDROmorphone (DILAUDID) injection 0.25 mg 0.25 mg, Intravenous, Q10MIN PRN, Pain, The immediate postop period when longer acting agent is desired., Starting on Fri10/16/23 at 0713, Until Fri10/16/23 at 1237, Maximum cumulative dose is 2 mg in PACU, call Anesthesiologist if additional or greater dosing is needed. For patients with a regional, spinal, or local anesthetic, may give for anticipated pain as the anesthetic wears off. , PACU/Recovery hydrOXYzine HCl (VISTARIL) injection 25 mg 25 mg, Intramuscular, ONCE PRN, Nausea/Vomiting, Starting on Fri10/16/23 at 0713, Until Fri10/16/23 at 1237, For 1 dose, If multiple [...] doses, hold for HR <50, Starting on Fri10/16/23 at 0713, Until Dulce 10/16/23 at 1237, For 5 doses, Call Anesthesiologist before administration. Give as directed by Anesthesiologist., PACU/Recovery lidocaine (XYLOCAINE) 2 % injection ONCE PRN, Starting on Fri10/16/23 at 0841, Intra-op 0841 (Given - Provid er: Goyo Bobby, HUY) lidocaine PF (XYLOCAINE) 1 % injection 0.1-0.3 mL(Linked Group 1) 0.1-0.3 mL, Intradermal, PRN, Other, for additional IV starts, Starting on Dulce 10/16/23 at 0718, Pre-op midazolam (VERSED) injection 0.5-1 mg 0.5-1 mg, Intravenous, [id number], Anxiety, Starting on Dulce 10/16/23 at 0713, Until Dulce 10/16/23 at 1237, Maximum cumulative dose is 2 mg. TO BE GIVEN IN PACU ONLY., PACU/Recovery midazolam (VERSED) injection 1-2 mg 1-2 mg, Intravenous, [id number], Sedation, Anxiety, Procedure, Starting on Dulce 10/16/23 [...] (Given - Provid er: Goyo Bobby, HUY) Linked Groups Order Group 1: lidocaine PF [...] Pre-op documented in this encounter Care Teams Route Sales Representative Relationship Specialty Start Date End Date Jose Velásquez MD [address] [place] [address] [place] [address] PCP - General Internal Medicine 04/10/23 documented as of this encounter
--- OUTSIDE RECORDS SUMMARY | 2023-11-20 06:52 | XMS_ITS | Encounter Summary ---
Author Organization [employer] Address [address] [place] [address] Care Team Providers Care It Program Manager Name Role Phone Jose Velásquez MD Primary Care Provider Reason for Visit * Reason Comments Post-Op Check Encounter Details Date Type Department Care Team (Late st Contact Info) Description 11/03/2023 2:30 PM CDT Office Visit [facility] P3800 Podiatric MedSurg [address] [facility] [place] [address] Nurse, P3800 Pod Med Surg Orthopedic aftercare (Primary Dx) Social History Tobacco Use Types Packs/Day Years [...] Progress Notes * Erica Potter RN - 11/03/2023 2:30 PM CDT Podiatric Medicine and Surgery Post-Operative Note (Dx: Z47.89. Billing [id number]) Surgeon: Dr. Bobby DOS: 10/16/23 Surgery: 1. Chevron bunionectomy, right foot. 2. Tailors bunionectomy, right foot. Days Post-op: 18 days Weight Bearing Status: Strict NWB 2 weeks from DOS Pain Location: pin sites Pain Rating: patient reports pin sites are tender Pain Medication: n/a Post-operative Dressings: PO dressing intact; removed in clinic and new dressing applied Incision: Sutures removed in clinic, 2 pins intact Drainage: dried blood noted on PO dressing Wound Care: incision cleansed with Betadine/alcohol, covered with gauze, kerlix, stockinet Assessment: Normal post-operative healing and progress Patient verbalized understanding of post-operative plan and signs and symptoms of complications to report to clinic/MD Plan Suture removal today, 2 pins intact and not removed today documented in this encounter Plan of Treatment Upcoming Encounters Date Type Department Care Team (Late [facility]) Description 11/25/2023 1:45 PM CDT Appointment [facility] P38 Podiatric MedSurg [address] [facility] [place], [place] [phone] Goyo Bobby DPM [address] [place], [place] [phone] documented as of this encounter Visit Diagnoses Diagnosis Orthopedic aftercare- Primary Unspecified orthopedic aftercare documented in this encounter Care Teams It Program Manager Relationship Specialty Start Date End Date Jose Velásquez MD [address] [place] [address] Dr TUYET RAMÍREZ [address] PCP - General Internal Medicine 04/10/23 documented as of this encounter
--- OUTSIDE RECORDS SUMMARY | 2023-11-20 06:52 | XMS_ITS | Encounter Summary ---
Author Organization [employer] Address [address], [place] [address] Care Team Providers Care Director Of Extension Work Name Role Phone Jose Velásquez MD Primary Care Provider Encounter Details Date Type Department Care Team (Late st Contact Info) Description 04/27/2023 Notes/Orders [place] [address] Podiatric MedSurg [address] [place], [place] [address] Goyo Bobby DPM [address] [place] [address] Social History Tobacco Use Types Packs/Day Years [...] Info) Description 11/25/2023 1:45 PM CDT Appointment [place] [phone] Podiatric MedSurg [address] [place], [place] [address] Goyo Bobby, DPM [address] [place] [address] documented as of this encounter Visit Diagnoses Not on filedocumented in this encounter Care Teams Director Of Extension Work Relationship Specialty Start Date End Date Jose Velásquez MD [address] [place] Marquez [address] PCP - General Internal Medicine 04/10/23 documented as of this encounter
--- OUTSIDE RECORDS SUMMARY | 2023-11-20 06:52 | XMS_ITS | Encounter Summary ---
Author Organization [employer] Address [address] [place] [address] Care Team Providers Care Dyer And Washer Name Role Phone Jose Velásquez MD Primary Care Provider Reason for Visit * Reason Comments PRE-OP EXAM Encounter Details Date Type Department Care Team (Late st Contact Info) Description 10/07/2023 8:30 AM CDT Pre-Op Visit [facility] [address] [facility] [place] [phone] Jose Velásquez MD [address] [facility] [place] [phone] Preoperative examination (Primary Dx); Tailor's bunion of [...] Sign Reading Time Taken Comments Blood Pressure 123/91 10/07/2023 8:45 AM CDT Pulse 86 10/07/2023 8:45 AM CDT Temperature 36.7 ??C (98 ??F) 10/07/2023 8:37 AM CDT Respiratory Rate - - Oxygen Saturation 95% 10/07/2023 8:37 AM CDT Inhaled Oxygen Concentration - - Weight 72.1 kg (159 lb) 10/07/2023 8:37 AM CDT Height 157.5 cm (5' 2) 10/07/2023 8:37 AM CDT Body Mass Index 29.08 10/07/2023 8:37 AM CDT documented in this encounter Progress Notes * Jose Velásquez MD - 10/07/2023 8:30 AM CDT PREOPERATIVE ASSESSMENT Date of Service: 10/07/2023 Date of : 1960 Age: 62 y.o. Sex: female Preoperative Evaluation completed by: Jose Velásquez MD Primary dialysis patient care technician: Jose Velásquez MD [phone] CHIEF COMPLAINT Pre-Operative Evaluation ANTICIPATED PROCEDURE Chief Complaint Patient presents with PRE-OP EXAM Right foot surgery: BUNIONECTOMY WITH OSTEOTOMY AND TAILOR'S BUNIONECTOMY WITH OSTEOTOMY AND K-WIREFIXATION, 10/16/[address] Bobby at the [facility] HISTORY OF PRESENT ILLNESS Right Foot symptomatic [...] (postoperative nausea and vomiting) Schwannoma followed by [place] Past Surgical History: Procedure Laterality Date ENDOMETRIAL [...] PATIENT: yes 10/07/2023 documented in this encounter Plan of Treatment Upcoming Encounters Date Type Department Care Team (Late st Contact Info) Description 11/25/2023 1:45 PM CDT Appointment [facility] P3800 Podiatric MedSurg [address] [facility] [place], [place] [phone] Goyo Bobby DPM [address] [place], [place] [phone] documented as of this encounter Visit Diagnoses Diagnosis Preoperative examination- Primary Preoperative examination, unspecified Tailor's bunion of right foot documented in this encounter Care Teams Dyer And Washer Relationship Specialty Start Date End Date Jose Velásquez MD [address] [place] [address] PCP - General Internal Medicine 04/10/23 documented as of this encounter
--- OUTSIDE RECORDS SUMMARY | 2023-11-20 06:52 | XMS_ITS | Encounter Summary ---
Author Organization [employer] Address [address], [place] [address] Care Team Providers Care Carrier Packer Name Role Phone Jose Velásquez MD Primary Care Provider Reason for Visit * Reason Comments Surgery Scheduling Encounter Details Date Type Department Care Team (Late st Contact Info) Description 09/03/2023 Telephone [facility] [address] [place] [address] oGyo Bobby, DPM [address] [place] [address] Surgery Scheduling Social History Tobacco Use Types Packs/Day Years [...] on file documented as of this encounter Nursing Notes * Claudia Magallanes - 09/04/2023 10:47 AM CDT Patient has been scheduled on 10/15 for surgery per patient request. Packet received . Jennifer Zamudio 09/04/23 10:47 AM * Jennifer Husain - 09/04/2023 10:14 AM CDT Patient returning Jennifer's call to schedule surgery. * Claudia Magallanes - 09/04/2023 9:24 AM CDT Called patient to schedule surgery. No Answer /Lvm. Jennifer S. 09/04/23 9:25 AM Called patient to schedule surgery. No Answer /Lvm. Jennifer S. 09/04/23 9:24 AM * Claudia Magallanes - 09/03/2023 11:28 AM CDT Called patient to schedule surgery. No Answer /Lvm. Jennifer S. 09/03/23 11:29 AM * Claudia Magallanes - 09/03/2023 11:27 AM CDT Called patient to schedule surgery. No Answer /Lvm. Jennifer S. 09/03/23 11:27 AM * Marie Latif RN - 09/03/2023 9:21 AM CDT Patient is ready to schedule surgery. Pre op teaching and screening were done in clinic today. Packet was given. She may be reached at [phone]. Anytime. documented in this encounter Plan of Treatment Upcoming Encounters Date Type Department Care Team (Late st Contact Info) Description 11/25/2023 1:45 PM CDT Appointment [facility] P38 Podiatric MedSur [address] [address] [place], [place] [address] Goyo Bobby, HUY [address] [place], [place] [phone] documented as of this encounter Visit Diagnoses Not on filedocumented in this encounter Care Teams Carrier Packer Relationship Specialty Start Date End Date Jose Velásquez MD [address] [place] [address] [address] [place] [address] PCP - General Internal Medicine 04/10/23 documented as of this encounter
--- OUTSIDE RECORDS SUMMARY | 2023-11-20 06:52 | XMS_ITS | Encounter Summary ---
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 [address] Goyo Bobby, DPYari [address] [place] [address] Prior Authorization For Procedure Social History Tobacco Use Types Packs/Day Years [...] as of this encounter Nursing Notes * Marleny Holliday RN - 10/15/2023 3:22 PM CDT Surgery approved. * Mayra Storey - 10/01/2023 9:32 AM CDT New case submitted. I called Wanda back and left the new case number on her voicemail. * Marie Latif RN - 10/01/2023 8:54 AM CDT Wanad was called with the angle measurements today. A new prior authorization will need to be submitted. Wanda requests that it be an expedited prior auth and that she be called with the new prior auth number. (See note below) * Marie Latif RN - 10/01/2023 8:51 AM CDT Images from the original note were not included. Goyo Bobby DPM You25 minutes ago (8:25 AM) CS Intermetatarsal angle 15 degrees Hallux Abducto Valgus angle 16 degrees * Marie Latif RN - 09/30/2023 2:54 PM CDT Furnace Tender called Wanda back and she stated that she will need the angles of the hallux valgus and intermetatarsals. She stated that they were due by 12:00 today. She will do a provider withdraw of the case. Furnace Tender will get the angles from Dr. Bobby tomorrow and call Wanda back with the measurements. Wanda stated that once she has the angles, a new prior authorization will need to be submitted.She requests that it be an expedited prior auth and that she would like a call from the prior auth team with the new prior auth number. At that time she will pull the case and prep it so it will be expedited. Wanda may be reached at [phone]. * Sowmya Pham - 09/30/2023 10:11 AM CDT Additional Information Needed for Prior Authorization Date Entered: 09/30/23 10:08 AM CPT: 64488 / 64915 Procedure: BUNIONECTOMY WITH OSTEOTOMY AND TAILOR'S BUNIONECTOMY WITH OSTEOTOMY AND K-WIRE FIXATION DX: M20.11 / M21.621 DOS: 10/16/2023 Inpatient/Outpatient: OUTPT Provider: Goyo Bobby Location: [facility] Reference #: [id number] Insurance: [facility] Contact/Submission: WEBSITE Clinicals Sent: 09/02 OV & XRAYS This authorization is currently in process. The payor is requesting additional supporting information before making a decision. Please provide the information needed Action needed to provide additional information Payor/Insurance: [facility] Fax: N/A Reference #: [id number] PLEASE CALL WANDA @ [phone] WHO HAS QUESTIONS REGARDING THE ANGLES. documented in this encounter Plan of Treatment Upcoming Encounters Date Type Department Care Team (Late st Contact Info) Description 11/25/2023 1:45 PM CDT Appointment [facility] [id number] Podiatric MedSurg [address] [place] [address] Goyo Bobby, DPYari [address] [place] [address] documented as of this encounter Visit Diagnoses Not on filedocumented in this encounter Care Teams Portable Sawmill Operator Relationship Specialty Start Date End Date Jose Velásquez MD [address] [place] [id number] PCP - General Internal Medicine 04/10/23 documented as of this encounter
[2023-11-20 06:54] LABS: Basophils Percent Auto 0.7 % (0.0-3.0); Eosinophils Percent Auto 0.3 % (0.0-7.0); Hematocrit 43.3 % (33.0-51.0); Hemoglobin* 14.5 gm/dL (12.0-16.0); Lymphocytes Percent Auto 18.3 % (20-44); Mean Corpuscular HGB Conc 34 gm/dL (32-36); Mean Corpuscular Hemoglobin 32 pg (26-34); Mean Corpuscular Volume 95 fL (80-100); Neutrophils Percent Auto 68.7 % (42.0-72.0); Platelet Count* 185 K/uL (140-440); RDW Coefficient of Variation % 11.9 % (11.5-15.5); Red Blood Count 4.57 m/uL (4.00-5.20); White Blood Count* 3.01 K/uL (4.50-11.00)
[2023-11-20 06:57] LABS: Slide Review Reflex No
[2023-11-20 07:05] LABS: Chloride* 106 mmol/L (96-114); Sodium* 136 mmol/L (135-149)
[2023-11-20 07:07] LABS: Creatinine* 0.8 mg/dL (0.5-1.5); Est. Creatinine Clearance* 47.01; Estimated Glomerular Filt Rate 82 ml/min
[2023-11-20 07:08] LABS: Anion Gap 7 mEq/L (7-15); Blood Urea Nitrogen* 13 mg/dL (7-30); Calcium* 9.5 mg/dL (8.4-10.6); Carbon Dioxide* 23 mmol/L (20-32); Glucose* 115 mg/dL (60-115)
[2023-11-20 07:10] LABS: Appearance Urine Clear (Clear); Bilirubin Urine Negative (Negative); Blood Urine Trace-lysed (Negative); Color Urine Yellow (Yellow); Glucose Urine Negative (Negative); Ketones Urine Negative (Negative); Leukocyte Esterase Urine 1+ (Negative); Nitrite Urine Negative (Negative); Protein Urine Negative (Negative); Specific Gravity Urine 1.025 (1.000-1.030); Urobilinogen Urine 0.2 (0.2-1.0); pH Urine 6.5 (5.0-8.5)
[2023-11-20 07:25] VITALS: BP 120/74; PULSE 93; RESP 16; O2SAT 98
[2023-11-20 07:40] LABS: Bacteria Urine Moderate; Squamous Epithelial Cell Urine Few (None-Few)
== END 2023-11-20 07:56 | disposition home or self-care (01) ==
PROVIDERS: Emergency Provider Family Medicine
DX: N39.0 Urinary tract infection, site not specified (principal); M79.671 Pain in right foot
CPT/HCPCS: 36415; 80048; 81001; 81003; 85025; 85379; 87086; 99282; 99283; A9270